=== PATIENT | female | born 1955 ===

== ENCOUNTER 2017-10-29 22:42 | Observation (INO) | payer BC ==
[2017-10-29 22:50] VITALS: RESP 18
[2017-10-29 23:45] LABS: BASO # 0.1 K/uL (0.0-0.2); BASO % 0.7 % (0.0-2.0); EOS # 0.1 K/uL (0.0-0.7); EOS % 0.7 % (0.0-4.0); LYMPH # 2.5 K/uL (1.0-4.3); LYMPH % 30.8 % (20.0-40.0); MEAN CELL VOLUME 81.7 fl (81.0-99.0); MEAN CORPUSCULAR HGB CONC 31.9 g/dL (33.0-37.0); MEAN PLATELET VOLUME 10.3 fl (7.2-11.7); MONO # 0.6 K/uL (0.0-0.8); MONO % 6.7 % (0.0-10.0); NEUT % 61.1 % (50.0-75.0); NRBC % 0.1 % (0.0-0.0); RBC 4.99 Mil/uL (3.80-5.20); RED CELL DISTRIBUTION WIDTH 14.3 % (11.5-14.5); WHITE BLOOD COUNT 8.2 K/uL (4.8-10.8)
--- NOTE | 2017-10-30 00:03 | ED PDOC ---
HPI: Chest Pain Time Seen by Provider: 10/29/17 23:10 Chief Complaint (Nursing): Chest Pain History Per: Patient History/Exam Limitations: no limitations Onset/Duration Of Symptoms: Days (x1) Current Symptoms Are (Timing): Constant Additional Complaint(s): Sindy Joseph, a 62 year old female presents to the Emergency Department complaining of constant substernal pressure-like chest pain onset today, . Reports hers daughter gave her Aspirin and she called the ambulance upon the family's request. The patient mentions the EMS provided her with sublingual nitrate for relief of symptoms. She also has family history of hypertension. Denies nausea or leg swelling. PMD: Dr. Del Rio Past Medical History Reviewed: Historical Data, Nursing Documentation, Vital Signs Vital Signs: Last Vital Signs Temp 98.2 F 10/29/17 22:46 Pulse 64 10/29/17 23:06 Resp 18 10/29/17 23:06 BP 125/79 10/29/17 23:06 Pulse Ox 98 10/30/17 00:07 - Medical History PMH: Arthritis, HTN, Osteoporosis Denies: Chronic Kidney Disease - Surgical History Surgical History: Appendectomy - Family History Family History: States: Unknown Family Hx - Social History Current smoker - smoking cessation education provided: Yes Alcohol: None Drugs: Denies - Immunization History Hx Tetanus Toxoid Vaccination: No Hx Influenza Vaccination: No Hx Pneumococcal Vaccination: No - Home Medications Home Medications: Ambulatory Orders Medication Instructions Recorded Atorvastatin [Lipitor] 40 mg PO DAILY #30 tab 11/16/16 Nebivolol [Bystolic] 5 mg PO DAILY 10/29/17 - Allergies Allergies/Adverse Reactions: Allergies Allergy/AdvReac Type Severity Reaction Status Date / Time No Known Allergies Allergy Verified 11/14/16 12:50 Review of Systems ROS Statement: Except As Marked, All Systems Reviewed And Found Negative (As per HPI, otherwise negative) Respiratory: Negative for: Shortness of Breath Gastrointestinal: Negative for: Nausea, Vomiting Musculoskeletal: Negative for: Other (no leg swelling) - Laboratory Results Result Diagrams: 10/29/17 23:41 - ECG O2 Sat by Pulse Oximetry: 98 (RA) Pulse Ox Interpretation: Normal Medical Decision Making Medical Decision Making: Time: 23:31 Initial Impression: Chest Pain Patient is currently symptomatic. Patient has anginal chest pain with cardiac risk factors and needs hospitalization. Initial Plan: --Type and Screen --EKG --B-Type Natriuretic Peptide --CMP --Magnesium --Phosphorous --Troponin I --Troponin I Q8H --CBC --Partial Thromboplastin Time [COAG] -- Thromboplastin Time [COAG] --Chest X-ray --Reevaluation Scribe Attestation: Documented by Rory, acting as a scribe for Silva Flowers MD Provider Scribe Attestation: All medical record entries made by the Scribe were at my direction and personally dictated by me. I have reviewed the chart and agree that the record accurately reflects my personal performance of the history, physical exam, medical decision making, and the department course for this patient. I have also personally directed, reviewed, and agree with the discharge instructions and disposition. Disposition - Disposition Condition: STABLE Forms: lark (Kiswahili)
[2017-10-30 00:10] LABS: B-TYPE NATRIURETIC PEPTIDE 228 pg/ml (0-900)
[2017-10-30 00:11] LABS: ALB/GLOB RATIO 0.8 (1.0-2.1); ALBUMIN 4.1 g/dL (3.5-5.0); ALT/SGPT 20 U/L (9-52); AST/SGOT 23 U/L (14-36); BLOOD UREA NITROGEN 16 mg/dl (7-17); CALCIUM 9.6 mg/dL (8.4-10.2); GFR AFRICAN-AMERICAN > 60; GFR NON-AFRICAN AMERICAN > 60; MAGNESIUM 1.9 MG/DL (1.6-2.3)
[2017-10-30 00:15] LABS: INR 1.1 (0.9-1.2); PARTIAL THROMBOPLASTIN TIME 28.8 Seconds (25.6-37.1); PROTHROMBIN TIME 11.8 Seconds (9.8-13.1)
--- NOTE | 2017-10-30 03:35 | CP.PCM.PCO ---
Addendum Addendum: 10/30/17 03:33 I am called by nurse and notified patient has epigastric abdominal pain. Patient admitted for chest pain in telemetry, EKG normal, trop x1 normal. Reporting that chest pain subsided, but now has a new abd pain over epigastric area and supraumbilical 04/11. Denies hx/o GERD, gastritis, pyrosis. patient received aspirin at home and nitroglycerin on the ambulance for chest pain. A: Abd pain P: repeat EKG, pantoprazol 40 mg IV -resume BP medication for today 9 am -f/u 2nd troponin. --EKG normal, no acute changes -F/U lipase 10/30/17 05:02
[2017-10-30 08:47] VITALS: BMI 26.9
[2017-10-30 08:55] LABS: HDL CHOLESTEROL 32 MG/DL (30-70)
[2017-10-30] MEDS ORDERED: Enoxaparin 40 mg Syringe SC SCH (09:00)
[2017-10-30 09:05] LABS: LDL CHOLESTEROL 80 mg/dL (0-129)
[2017-10-30 09:06] LABS: T4 9.49 ug/dl (5.5-11.0)
--- NOTE | 2017-10-30 09:50 | RAD ---
HISTORY: chest pain COMPARISON: No prior. FINDINGS: LUNGS: Mild bibasilar atelectasis PLEURA: No significant pleural effusion identified, no pneumothorax apparent. CARDIOVASCULAR: Normal. OSSEOUS STRUCTURES: No significant abnormalities. VISUALIZED UPPER ABDOMEN: Normal. OTHER FINDINGS: None. IMPRESSION: Mild bibasilar atelectasis
--- NOTE | 2017-10-30 11:33 | HP ---
HISTORY OF PRESENT ILLNESS: Ms. Joseph is a 62-year-old female who was admitted via the emergency room because of constant substernal chest pressure on the day of admission. She was brought in to the hospital by the daughter who was called the ambulance to bring her to the hospital and had given the mom an aspirin. Symptoms have persisted. In the ambulance, she received nitrate sublingual and was brought to the emergency room where was noted to have elevated blood pressure. PAST MEDICAL HISTORY: Remarkable for arthritis, hypertension, osteoporosis. FAMILY HISTORY: Nonrevealilng. SOCIAL HISTORY: She denies smoking recently, but used to in the past. Does use alcohol. Does not use drugs. MEDICATIONS: Include atorvastatin and Bystolic. PHYSICAL EXAMINATION: GENERAL: The patient is alert, oriented. Appears to be comfortable at present. VITAL SIGNS: Blood pressure 126/78 with a pulse of 66, respiratory rate 18 per minute, blood pressure on admission was 168/88, O2 sat 99% on room air. SKIN: Shows fair turgor. HEENT: Pupils equal, reactive to light and accommodation. Mouth shows fair hygiene. NECK: JVP flat. LUNGS: Clear. HEART: Regular. No murmurs or gallop. BRESTS: Normal. No chest wall tenderness. ABDOMEN: Soft, nontender. There is no organomegaly appreciated. EXTREMITIES: Show no edema or cyanosis. CENTRAL NERVOUS SYSTEM: Grossly intact. GENITALIA AND RECTAL: Deferred. LABORATORY DATA: WBC 8.2, hemoglobin 13.0, platelet count 189,000. Sodium 141, potassium 3.8, BUN 16, creatinine 0.6, troponin less than 0.012 x2. ProBNP 228. Thyroid profile normal. EKG, regular sinus rhythm, left atrial enlargement. Chest x-ray: Mild basilar atelectasis, otherwise unremarkable. IMPRESSION: Chest pain, uncontrolled hypertension, history of hyperlipidemia. PLAN: The plan is to obtain cardiac evaluation to rule out acute coronary syndrome. If cleared by Cardiology, we will discharge on antihypertensives and antilipids with aspirin. Dayne Matias MD
[2017-10-30 12:26] VITALS: BP 122/74; PULSE 57; TEMP 97.8; O2SAT 98
--- NOTE | 2017-10-30 12:41 | CP.PCM.DIS ---
Provider - Provider Date of Admission: 10/30/17 00:13 Attending physician: Dayne Matias MD Time Spent in preparation of Discharge (in minutes): 30 Diagnosis - Discharge Diagnosis (1) Chest pain Status: Acute (2) Hypertension Status: Acute (3) Hyperlipidemia Status: Acute Hospital Course - Lab Results Lab Results: Most Recent Lab Values WBC 8.2 K/uL (4.8-10.8) 10/29/17 23:41 RBC 4.99 Mil/uL (3.80-5.20) 10/29/17 23:41 Hgb 13.0 g/dL (12.0-16.0) 10/29/17 23:41 Hct 40.8 % (34.0-47.0) 10/29/17 23:41 MCV 81.7 fl (81.0-99.0) 10/29/17 23:41 MCH 26.0 pg (27.0-31.0) L 10/29/17 23:41 MCHC 31.9 g/dL (33.0-37.0) L 10/29/17 23:41 RDW 14.3 % (11.5-14.5) 10/29/17 23:41 Plt Count 189 K/uL (130-400) 10/29/17 23:41 MPV 10.3 fl (7.2-11.7) 10/29/17 23:41 Neut % (Auto) 61.1 % (50.0-75.0) 10/29/17 23:41 Lymph % (Auto) 30.8 % (20.0-40.0) 10/29/17 23:41 [place] % (Auto) 6.7 % (0.0-10.0) 10/29/17 23:41 Eos % (Auto) 0.7 % (0.0-4.0) 10/29/17 23:41 Baso % (Auto) 0.7 % (0.0-2.0) 10/29/17 23:41 Neut # 5.0 K/uL (1.8-7.0) 10/29/17 23:41 Lymph # 2.5 K/uL (1.0-4.3) 10/29/17 23:41 [place] # 0.6 K/uL (0.0-0.8) 10/29/17 23:41 Eos # 0.1 K/uL (0.0-0.7) 10/29/17 23:41 Baso # 0.1 K/uL (0.0-0.2) 10/29/17 23:41 PT 11.8 Seconds (9.8-13.1) 10/29/17 23:41 INR 1.1 (0.9-1.2) 10/29/17 23:41 APTT 28.8 Seconds (25.6-37.1) 10/29/17 23:41 Sodium 141 mmol/l (132-148) 10/29/17 23:41 Potassium 3.8 MMOL/L (3.6-5.0) 10/29/17 23:41 Chloride 105 mmol/L (98-107) 10/29/17 23:41 Carbon Dioxide 24 mmol/L (22-30) 10/29/17 23:41 Anion Gap 16 (10-20) 10/29/17 23:41 BUN 16 mg/dl (7-17) 10/29/17 23:41 Creatinine 0.6 mg/dl (0.7-1.2) L 10/29/17 23:41 Est GFR ( Amer) > 60 10/29/17 23:41 Est GFR (Non-Af Amer) > 60 10/29/17 23:41 Random Glucose 168 mg/dL (65-105) H 10/29/17 23:41 Calcium 9.6 mg/dL (8.4-10.2) 10/29/17 23:41 Phosphorus 3.2 mg/dl (2.5-4.5) 10/29/17 23:41 Magnesium 1.9 MG/DL (1.6-2.3) 10/29/17 23:41 Total Bilirubin 0.4 mg/dl (0.2-1.3) 10/29/17 23:41 AST 23 U/L (14-36) 10/29/17 23:41 ALT 20 U/L (9-52) 10/29/17 23:41 Alkaline Phosphatase 95 U/L (38-126) 10/29/17 23:41 Troponin I < 0.0120 ng/mL (0.00-0.120) 10/30/17 07:00 NT-Pro-B Natriuret Pep 228 pg/ml (0-900) 10/29/17 23:41 Total Protein 9.0 G/DL (6.3-8.2) H 10/29/17 23:41 Albumin 4.1 g/dL (3.5-5.0) 10/29/17 23:41 Globulin 4.9 gm/dL (2.2-3.9) H 10/29/17 23:41 Albumin/Globulin Ratio 0.8 (1.0-2.1) L 10/29/17 23:41 Triglycerides 99 mg/DL (0-149) 10/30/17 07:00 Cholesterol 141 mg/dL (0-199) 10/30/17 07:00 LDL Cholesterol Direct 80 mg/dL (0-129) 10/30/17 07:00 HDL Cholesterol 32 MG/DL (30-70) 10/30/17 07:00 Lipase 51 U/L (23-300) 10/30/17 07:00 Thyroxine (T4) 9.49 ug/dl (5.5-11.0) 10/30/17 07:00 TSH 3rd Generation 1.29 mIU/ML (0.46-4.68) 10/30/17 07:00 Blood Type O POSITIVE 10/29/17 23:50 Antibody Screen Negative 10/29/17 23:50 BBK History Checked Patient has bt 10/29/17 23:50 - Hospital Course Hospital Course: chest pain free cleared for discharge by 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--dr mane Discharge Exam - Head Exam Head Exam: ATRAUMATIC, NORMAL INSPECTION, NORMOCEPHALIC - Eye Exam Eye Exam: EOMI, Normal appearance, PERRL Pupil Exam: NORMAL ACCOMODATION, PERRL - GI/Abdominal Exam GI & Abdominal Exam: Normal Bowel Sounds - Rectal Exam Rectal Exam: NORMAL INSPECTION - Neurological Exam Neurological exam: Alert, CN II-XII Intact, Normal Gait, Oriented x3, Reflexes Normal - Psychiatric Exam Psychiatric exam: Normal Affect, Normal Mood - Skin Skin Exam: Dry, Intact, Normal Color, Warm Discharge Plan - Follow Up Plan Condition: STABLE Disposition: HOME/ ROUTINE Patient education suggested?: Yes Additional Instructions: discharge home today increase bystolic to 10 mg daily follow up with pmd
--- NOTE | 2017-10-30 13:18 | CP.PCM.CON ---
History of Present Illness - History of Present Illness History of Present Illness: This 62-year-old hypertensive female with a history of dyslipidemia ( and a smoker) came into the hospital complaining of left pectoral ache quite unconnected to any physical activity. The patient reports that she often climbs couple of flights of stairs without any difficulty. This chest discomfort did not radiate into her arms or jaws and did not cause any nausea vomiting or perspiration. It disappeared spontaneously. Physical examination shows a pleasant middle aged female who is able to lie virtually flat in bed and be comfortably at 14 breaths per minute. Her heart rate was 70 bpm and regular and her blood pressure was 140/70 mmHg. Her jugular venous pressure was not elevated and there was no edema of lower extremity. The pedal pulses are well felt. There were no carotid bruits. The apex was not palpable. The first and second heart sounds were normal. There was no murmur or gallop there were no rales. Her electro-cardiogram showed sinus rhythm with a normal EKG pattern. Electrocardiogram's of last year also showed a similar normal pattern. Her lab data shows normal troponin levels. The rest of her labs were noted. Impression: Atypical chest pain with no evidence of acute coronary syndrome. The patient was strongly advised against smoking. I have discussed her case with Dr. Matias. The patient may go home and continue her management as an outpatient. Past Patient History - Past Medical History & Family History Past Medical History?: Yes - Past Social History Smoking Status: Light Smoker < 10 Cigarettes Daily - CARDIAC Hx Cardiac Disorders: Yes Hx Hypercholesterolemia: Yes Hx Hypertension: Yes - PULMONARY Hx Respiratory Disorders: No - NEUROLOGICAL Hx Neurological Disorder: Yes Hx Transient Ischemic Attacks (TIA): Yes (1 year ago) - HEENT Hx HEENT Problems: No - RENAL Hx Chronic Kidney Disease: No - ENDOCRINE/METABOLIC Hx Endocrine Disorders: No - HEMATOLOGICAL/ONCOLOGICAL Hx Blood Disorders: No Hx Anemia: Yes - INTEGUMENTARY Hx Dermatological Problems: No - MUSCULOSKELETAL/RHEUMATOLOGICAL Hx Arthritis: Yes Hx Falls: No Hx Osteoporosis: Yes - GASTROINTESTINAL Hx Gastrointestinal Disorders: No - GENITOURINARY/GYNECOLOGICAL Hx Genitourinary Disorders: No - PSYCHIATRIC Hx Psychophysiologic Disorder: No Hx Substance Use: No - SURGICAL HISTORY Hx Appendectomy: Yes Hx Section: Yes - ANESTHESIA Hx Anesthesia: Yes Hx Anesthesia Reactions: No Meds Home Medications: Home Medication List Medication Instructions Recorded Confirmed Type Aspirin [Aspirin Chewable] 81 mg PO DAILY chew 10/30/17 Rx Nebivolol [Bystolic] 10 mg PO DAILY #30 10/30/17 10/29/17 Rx Allergies/Adverse Reactions: Allergies Allergy/AdvReac Type Severity Reaction Status Date / Time No Known Allergies Allergy Verified 11/14/16 12:50 - Medications Medications: Current Medications Aspirin (Aspirin Chewable) 81 mg PO DAILY [facility] Last Admin: 10/30/17 09:08 Dose: 81 mg Enoxaparin Sodium (Lovenox) 40 mg SC DAILY [facility] PRN Reason: Protocol Last Admin: 10/30/17 12:52 Dose: 40 mg Metoprolol Tartrate (Lopressor) 50 mg PO BID [facility] Last Admin: 10/30/17 09:07 Dose: 50 mg Results - Vital Signs Recent Vital Signs: Last Vital Signs Temp 97.8 F 10/30/17 12:51 Pulse 57 L 10/30/17 12:51 Resp 18 10/30/17 12:51 BP 122/74 10/30/17 12:51 Pulse Ox 98 10/30/17 12:51 - Labs Result Diagrams: 10/29/17 23:41 10/29/17 23:41 Labs: Laboratory Results - last 24 hr 10/29/17 10/29/17 10/29/17 23:41 23:41 23:41 WBC 8.2 RBC 4.99 Hgb 13.0 Hct 40.8 MCV 81.7 MCH 26.0 L MCHC 31.9 L RDW 14.3 Plt Count 189 MPV 10.3 Neut % (Auto) 61.1 Lymph % (Auto) 30.8 [place] % (Auto) 6.7 Eos % (Auto) 0.7 Baso % (Auto) 0.7 Neut # 5.0 Lymph # 2.5 [place] # 0.6 Eos # 0.1 Baso # 0.1 PT 11.8 INR 1.1 APTT 28.8 Sodium 141 Potassium 3.8 Chloride 105 Carbon Dioxide 24 Anion Gap 16 BUN 16 Creatinine 0.6 L Est GFR ( Amer) > 60 Est GFR (Non-Af Amer) > 60 Random Glucose 168 H Calcium 9.6 Phosphorus 3.2 Magnesium 1.9 Total Bilirubin 0.4 AST 23 ALT 20 Alkaline Phosphatase 95 Troponin I < 0.0120 NT-Pro-B Natriuret Pep 228 Total Protein 9.0 H Albumin 4.1 Globulin 4.9 H Albumin/Globulin Ratio 0.8 L Triglycerides Cholesterol LDL Cholesterol Direct HDL Cholesterol Lipase Thyroxine (T4) TSH 3rd Generation Blood Type Antibody Screen BBK History Checked 10/29/17 10/30/17 10/30/17 23:50 07:00 07:00 WBC RBC Hgb Hct MCV MCH MCHC RDW Plt Count MPV Neut % (Auto) Lymph % (Auto) [place] % (Auto) Eos % (Auto) Baso % (Auto) Neut # Lymph # [place] # Eos # Baso # PT INR APTT Sodium Potassium Chloride Carbon Dioxide Anion Gap BUN Creatinine Est GFR ( Amer) Est GFR (Non-Af Amer) Random Glucose Calcium Phosphorus Magnesium Total Bilirubin AST ALT Alkaline Phosphatase Troponin I < 0.0120 NT-Pro-B Natriuret Pep Total Protein Albumin Globulin Albumin/Globulin Ratio Triglycerides 99 Cholesterol 141 LDL Cholesterol Direct 80 HDL Cholesterol 32 Lipase 51 Thyroxine (T4) 9.49 TSH 3rd Generation 1.29 Blood Type O POSITIVE Antibody Screen Negative BBK History Checked Patient has bt
--- NOTE | 2017-10-31 12:53 | CARD ---
APPROVED REPORT EKG Measurement Heart [id number] ID [id number] <Conclusion> Normal sinus rhythm Possible Left atrial enlargement Borderline ECG
--- NOTE | 2017-10-31 12:55 | CARD ---
APPROVED REPORT EKG Measurement Heart [id number] <Conclusion> Normal sinus rhythm Normal ECG
== END 2017-10-30 14:00 | disposition home or self-care (01) ==
LOC: H.ER 22:42 → H.ERHOLD 10-30 00:13 → H.TEL 10-30 02:10
PROVIDERS: ADMIT Internal Medicine Pulmonary Disease; ATTEND Internal Medicine Pulmonary Disease
DX: R07.89 Other chest pain (principal); I10 Essential (primary) hypertension; M81.0 Age-related osteoporosis without current pathological fracture; Z79.899 Other long term (current) drug therapy; Z82.49 Family history of ischemic heart disease and other diseases of the circulatory system; Z86.73 Personal history of transient ischemic attack (TIA), and cerebral infarction without residual deficits; Z90.49 Acquired absence of other specified parts of digestive tract; D64.9 Anemia, unspecified; M19.90 Unspecified osteoarthritis, unspecified site; R10.13 Epigastric pain; R10.9 Unspecified abdominal pain; E78.00 Pure hypercholesterolemia, unspecified; E78.5 Hyperlipidemia, unspecified; F17.200 Nicotine dependence, unspecified, uncomplicated
CPT/HCPCS: 36415; 71045; 80053; 80061; 83690; 83735; 83880; 84100; 84436; 84443; 84484; 85025; 85610; 85730; 86850; 86900; 93005; 99285; C9113; G0378; J1650

== ENCOUNTER 2018-08-29 15:42 | Observation (INO) | payer BC ==
[2018-08-29 15:42] VITALS: BMI 26.9
[2018-08-29 16:28] LABS: BASO # 0.1 K/uL (0.0-0.2); BASO % 0.5 % (0.0-2.0); EOS # 0.1 K/uL (0.0-0.7); HEMOGLOBIN 14.2 g/dL (12.0-16.0); LYMPH # 3.8 K/uL (1.0-4.3); LYMPH % 28.9 % (20.0-40.0); MEAN CELL VOLUME 81.5 fl (81.0-99.0); MEAN CORPUSCULAR HEMOGLOBIN 26.2 pg (27.0-31.0); MEAN CORPUSCULAR HGB CONC 32.1 g/dL (33.0-37.0); MEAN PLATELET VOLUME 10.2 fl (7.2-11.7); MONO # 1.1 K/uL (0.0-0.8); MONO % 8.2 % (0.0-10.0); NEUT # 8.1 K/uL (1.8-7.0); NEUT % 61.4 % (50.0-75.0); NRBC % 0.3 % (0.0-0.0); RBC 5.43 Mil/uL (3.80-5.20); RED CELL DISTRIBUTION WIDTH 14.6 % (11.5-14.5); WHITE BLOOD COUNT 13.3 K/uL (4.8-10.8)
[2018-08-29 16:36] LABS: PROTHROMBIN TIME 11.6 Seconds (9.8-13.1)
[2018-08-29 16:39] LABS: PARTIAL THROMBOPLASTIN TIME 29.8 Seconds (25.6-37.1)
[2018-08-29 16:41] LABS: BLOOD UREA NITROGEN 17 mg/dl (7-17); CALCIUM 9.7 mg/dL (8.4-10.2); GFR NON-AFRICAN AMERICAN > 60; HDL CHOLESTEROL 52 MG/DL (30-70)
[2018-08-29 16:51] LABS: LDL CHOLESTEROL 147 mg/dL (0-129)
--- NOTE | 2018-08-29 16:55 | ED PDOC ---
HPI:STROKE - Time Time: 15:50 - Historian Historian: Patient - Chief Complaint Chief Complaint: Weakness, Numbness - Onset Date: 08/26/18 Onset: Days (4) - Timing Timing: Intermittent - Location Locate left: other (Left side) - Severity of pain Maximum severity:: Moderate Pain Scale:: 4 Severity Current: Moderate Pain Scale:: 4 - Quality of Pain Quality of Pain:: Pressure (head) - Associated Symptoms Associated symptoms:: Headache - Exacerbated by Exacerbated by:: Nothing - Relieved by Relieved by:: Nothing - TPA Positive for Contraindication: Yes Reason tPA is not being Administered: Onset is out of window for TPA NIHSS Stroke Scale - Date/Time Evaluation Performed Date Performed: 08/29/18 Time Performed: 15:55 When Was NIHSS Performed: Baseline - How Severe is the Stroke Level of Consciousness: 0=Alert LOC to Questions: 0=Both comments correct LOC to commands: 0=Obeys both correctly Best Gaze: 0=Normal Visual: 0=No visual loss Facial: 1=Minor asymmetry Motor Arm - Left: 0=No drift Motor Arm - Right: 0=No drift Motor Leg - Left: 0=No drift Motor Leg - Right: 0=No drift Limb Ataxia: 0=Absent Sensory: 0=Normal Best Language: 0=No aphasia Dysarthia: 0=Normal articulation Extinction & Inattention (Neglect): 0=Normal, no object Score: 1 rTPA Inclusion/Exclusion - Refusal of Treatment Patient Refused Treatment: No - Inclusion Criteria for Altepase Patient is 18 years or Older: Yes The Clinical Diagnosis of Ischemic Stroke That is Causing a Potentially Disabling Neurological Deficit: No Time of Onset is Well Established to be Less Than 270 Minute Before Treatment Would Begin: No Risk/Benefit Discussed With Patient/Family Member Present: No Past Medical History Reviewed: Historical Data, Nursing Documentation, Vital Signs Vital Signs: Last Vital Signs Temp 98.1 F 08/29/18 15:52 Pulse 80 08/29/18 15:52 Resp 18 08/29/18 15:52 BP 201/117 H 08/29/18 15:52 Pulse Ox 100 08/29/18 15:52 - Medical History PMH: Anemia, Arthritis, HTN, Hypercholesterolemia, Hyperlipidemia, Osteoporosis, TIA (1 year ago) Denies: Chronic Kidney Disease - Surgical History Surgical History: Appendectomy, - Family History Family History: States: Unknown Family Hx - Immunization History Hx Tetanus Toxoid Vaccination: No Hx Influenza Vaccination: No Hx Pneumococcal Vaccination: No - Home Medications Home Medications: Ambulatory Orders Medication Instructions Recorded RX: Atorvastatin [Lipitor] 40 mg PO DAILY #30 tab 11/16/16 RX: Aspirin [Aspirin Chewable] 81 mg PO DAILY chew 10/30/17 RX: Nebivolol [Bystolic] 10 mg PO DAILY #30 10/30/17 - Allergies Allergies/Adverse Reactions: Allergies Allergy/AdvReac Type Severity Reaction Status Date / Time No Known Allergies Allergy Verified 08/29/18 15:51 Review of Systems ROS Statement: Except As Marked, All Systems Reviewed And Found Negative Physical Exam - Reviewed Nursing Documentation Reviewed: Yes Vital Signs Reviewed: Yes - Physical Exam Appears: Positive for: Non-toxic, No Acute Distress Head Exam: Positive for: ATRAUMATIC, NORMAL INSPECTION Skin: Positive for: Normal Color, Warm, Dry Eye Exam: Positive for: EOMI, PERRL ENT: Positive for: Normal ENT Inspection Neck: Positive for: Painless ROM, Supple Cardiovascular/Chest: Positive for: Regular Rate, Rhythm Respiratory: Positive for: Normal Breath Sounds. Negative for: Respiratory Distress Gastrointestinal/Abdominal: Positive for: Soft. Negative for: Tenderness Extremity: Positive for: Normal ROM Neurologic/Psych: Positive for: Alert, flaker operator II-XII (Facial nerveL left facial assymetry), Oriented, Cerebellar Tests (intact), Gait (steady). Negative for: Motor/Sensory Deficits, Aphasia, Facial Droop - Laboratory Results Result Diagrams: 08/29/18 16:19 08/29/18 16:19 - ECG O2 Sat by Pulse Oximetry: 100 Medical Decision Making Medical Decision Making: Impression: Left sided paresthesia and weakness Diff includes CVA 17:06 --CT head FINDINGS: HEMORRHAGE: No intracranial hemorrhage. BRAIN: No mass effect or edema. No atrophy or chronic microvascular ischemic changes. VENTRICLES: Unremarkable. No hydrocephalus. CALVARIUM: Unremarkable. PARANASAL SINUSES: Unremarkable as visualized. No significant inflammatory changes. MASTOID AIR CELLS: Unremarkable as visualized. No inflammatory changes. OTHER FINDINGS: None. IMPRESSION: No evidence of acute intracranial hemorrhage mass effect or midline shift. No CT evidence of acute territorial infarction. If clinically warranted further assessment by MRI of the brain may be obtained. [address] Brooks who recommends ASA, CT angio, and MRI brain. 20:17 --MRI brain FINDINGS: BRAIN: No restricted diffusion to indicate acute infarction. No intracranial mass or hemorrhage. No midline shift or extra-axial fluid collection. No sulcal effacement. No cerebellar tonsillar ectopia. The central arterial and venous flow voids are patent. VENTRICLES: No hydrocephalus. ORBITS: The orbits are normal. SINUSES AND MASTOIDS: The sinuses and mastoid air cells are clear. BONES: No focal osseous lesion. IMPRESSION: Unremarkable brain MRI. Disposition - Clinical Impression Clinical Impression: TIA (transient ischemic attack) - Patient ED Disposition Is Patient to be Admitted: Yes Discussed With DrCarl: Blake Noble Counseled Patient/Family Regarding: Studies Performed, Diagnosis - Disposition Disposition Time: 17:30 Condition: FAIR - Pt Status Changed To: Hospital Disposition Of: Observation - POA Present On Arrival: None
--- NOTE | 2018-08-29 17:10 | CT ---
Date of service: 08/29/2018 PROCEDURE: CT HEAD WITHOUT CONTRAST. HISTORY: weakness left sided COMPARISON: Comparison is made with 11/14/2016 TECHNIQUE: Axial computed tomography images were obtained through the head/brain without intravenous contrast. Radiation dose: Total exam DLP = 767.68 mGy-cm. This CT exam was performed using one or more of the following dose reduction techniques: Automated exposure control, adjustment of the mA and/or kV according to patient size, and/or use of iterative reconstruction technique. FINDINGS: HEMORRHAGE: No intracranial hemorrhage. BRAIN: No mass effect or edema. No atrophy or chronic microvascular ischemic changes. VENTRICLES: Unremarkable. No hydrocephalus. CALVARIUM: Unremarkable. PARANASAL SINUSES: Unremarkable as visualized. No significant inflammatory changes. MASTOID AIR CELLS: Unremarkable as visualized. No inflammatory changes. OTHER FINDINGS: None. IMPRESSION: No evidence of acute intracranial hemorrhage mass effect or midline shift. No CT evidence of acute territorial infarction. If clinically warranted further assessment by MRI of the brain may be obtained.
[2018-08-29 18:27] LABS: SQUAMOUS EPITHIAL 5 /hpf (0-5); URINE BILIRUBIN NEGATIVE (NEGATIVE); URINE BLOOD NEGATIVE (NEGATIVE); URINE CLARITY CLEAR (Clear); URINE COLOR STRAW (YELLOW); URINE GLUCOSE (UA) NEG (Normal); URINE LEUKOCYTE ESTERASE NEG Leu/uL (Negative); URINE PROTEIN NEGATIVE (NEGATIVE); URINE UROBILINOGEN 0.2-1.0 mg/dL (0.2-1.0)
[2018-08-29 18:54] LABS: BARBITURATES, UR NEGATIVE (NEGATIVE); BENZODIAZEPINES, UR NEGATIVE (NEGATIVE); OPIATES, UR NEGATIVE (NEGATIVE); PHENCYCLIDINE, UR NEGATIVE (NEGATIVE)
[2018-08-29] MEDS ORDERED: Aspirin 325 mg EC Tablets PO ONE (19:02)
[2018-08-29] MEDS ORDERED: Sodium Chloride 0.9% 50 ML IV ONE (19:40)
[2018-08-29] MEDS ORDERED: Iodixanol 320 MG/ML 100 ML BOTTLE IV ONE (19:40)
[2018-08-30 05:48] LABS: HEMOGLOBIN 13.7 g/dL (12.0-16.0); MEAN CELL VOLUME 82.2 fl (81.0-99.0); MEAN CORPUSCULAR HEMOGLOBIN 25.5 pg (27.0-31.0); RBC 5.37 Mil/uL (3.80-5.20); RED CELL DISTRIBUTION WIDTH 14.7 % (11.5-14.5); WHITE BLOOD COUNT 14.3 K/uL (4.8-10.8)
[2018-08-30 06:12] LABS: BLOOD UREA NITROGEN 21 mg/dl (7-17); CALCIUM 9.3 mg/dL (8.4-10.2); GFR NON-AFRICAN AMERICAN > 60; HDL CHOLESTEROL 44 MG/DL (30-70)
[2018-08-30 06:18] LABS: LDL CHOLESTEROL 140 mg/dL (0-129)
--- NOTE | 2018-08-30 07:45 | CP.PCM.HP ---
History of Present Illness - History of Present Illness History of Present Illness: Patient seen and examined with Dr Noble 63 yo female with PMH TIA 2 year ago, present to ED c/o numbness on her face and weakness in LLE. Patient reports initially her face turned red 4 days ago she went to PMD and was Rx some medicines for allergy, then she started with numbness and dryness in her nose. She endorses having a TIA 1 year ago. She denies dizziness, blurred vision, headache, ataxia, slurred speech, recent fever, nausea or vomiting, no CP or sob. Patient has no current focal deficits or weakness. PMD: PMH:Anemia, Arthritis, HTN, Hypercholesterolemia, Hyperlipidemia, Osteoporosis, TIA (2 years ago) PSH: Appendectomy, Meds: as bellow NKDA FMH: denies SH: no etoh, tobacco or alcohol Present on Admission - Present on Admission Any Indicators Present on Admission: No Review of Systems - Review of Systems All systems: reviewed and no additional remarkable complaints except (HPI) Past Patient History - Past Medical History & Family History Past Medical History?: Yes - Past Social History Smoking Status: Light Smoker < 10 Cigarettes Daily - CARDIAC Hx Cardiac Disorders: Yes Hx Hypercholesterolemia: Yes Hx Hypertension: Yes - PULMONARY Hx Respiratory Disorders: No - NEUROLOGICAL Hx Neurological Disorder: Yes Hx Transient Ischemic Attacks (TIA): Yes (1 year ago) - HEENT Hx HEENT Problems: No - RENAL Hx Chronic Kidney Disease: No - ENDOCRINE/METABOLIC Hx Endocrine Disorders: No - HEMATOLOGICAL/ONCOLOGICAL Hx Blood Disorders: Yes Hx Anemia: Yes - INTEGUMENTARY Hx Dermatological Problems: No - MUSCULOSKELETAL/RHEUMATOLOGICAL Hx Musculoskeletal Disorders: Yes Hx Arthritis: Yes Hx Falls: No Hx Osteoporosis: Yes - GASTROINTESTINAL Hx Gastrointestinal Disorders: No - GENITOURINARY/GYNECOLOGICAL Hx Genitourinary Disorders: No - PSYCHIATRIC Hx Psychophysiologic Disorder: No Hx Substance Use: No - SURGICAL HISTORY Hx Surgeries: Yes Hx Appendectomy: Yes Hx Section: Yes - ANESTHESIA Hx Anesthesia: Yes Hx Anesthesia Reactions: No Meds Allergies/Adverse Reactions: Allergies Allergy/AdvReac Type Severity Reaction Status Date / Time No Known Allergies Allergy Verified 08/29/18 15:51 Physical Exam - Constitutional Appears: No Acute Distress - Head Exam Head Exam: NORMAL INSPECTION - Eye Exam Eye Exam: EOMI - Respiratory Exam Respiratory Exam: Clear to Auscultation Bilateral, NORMAL BREATHING PATTERN - Cardiovascular Exam Cardiovascular Exam: REGULAR RHYTHM, +S1, +S2 - GI/Abdominal Exam GI & Abdominal Exam: Normal Bowel Sounds, Soft. absent: Tenderness - Extremities Exam Extremities exam: Negative for: calf tenderness - Neurological Exam Neurological exam: Alert, CN II-XII Intact, Oriented x3 - Expanded Neurological Exam Expanded Speech: Fluid Speech Neuro motor strength exam: Left Upper Extremity: 5, Right Upper Extremity: 5, Left Lower Extremity: 5, Right Lower Extremity: 5 - Skin Skin Exam: Dry, Warm Results - Vital Signs Recent Vital Signs: Last Vital Signs Temp 97.4 F L 08/30/18 05:22 Pulse 65 08/30/18 05:22 Resp 18 08/30/18 05:22 BP 127/76 08/30/18 05:22 Pulse Ox 98 08/30/18 05:22 - Labs Result Diagrams: 08/30/18 04:50 08/30/18 04:50 Labs: Laboratory Results - last 24 hr 08/29/18 08/29/18 08/29/18 16:19 16:19 16:19 WBC 13.3 H D RBC 5.43 H Hgb 14.2 Hct 44.3 MCV 81.5 MCH 26.2 L MCHC 32.1 L RDW 14.6 H Plt Count 196 MPV 10.2 Neut % (Auto) 61.4 Lymph % (Auto) 28.9 [place] % (Auto) 8.2 Eos % (Auto) 1.0 Baso % (Auto) 0.5 Neut # (Auto) 8.1 H Lymph # (Auto) 3.8 [place] # (Auto) 1.1 H Eos # (Auto) 0.1 Baso # (Auto) 0.1 PT 11.6 INR 1.0 APTT 29.8 Sodium 138 Potassium 4.6 Chloride 99 Carbon Dioxide 29 Anion Gap 15 BUN 17 Creatinine 0.6 L Est GFR ( Amer) > 60 Est GFR (Non-Af Amer) > 60 Random Glucose 102 Calcium 9.7 Troponin I < 0.0120 Triglycerides 119 D Cholesterol 207 H LDL Cholesterol Direct 147 H HDL Cholesterol 52 Vitamin B12 TSH 3rd Generation Urine Color Urine Clarity Urine pH Ur Specific [place] Urine Protein Urine Glucose (UA) Urine Ketones Urine Blood Urine Nitrate Urine Bilirubin Urine Urobilinogen Ur Leukocyte Esterase Urine RBC (Auto) Urine Microscopic WBC Ur Squamous Epith Cells Urine Opiates Screen Urine Methadone Screen Ur Barbiturates Screen Ur Phencyclidine Scrn Ur Amphetamines Screen U Benzodiazepines Scrn U Oth Cocaine Metabols U Cannabinoids Screen Alcohol, Quantitative < 10 08/29/18 08/29/18 08/30/18 17:54 18:10 04:50 WBC 14.3 H RBC 5.37 H Hgb 13.7 Hct 44.1 MCV 82.2 MCH 25.5 L MCHC 31.0 L RDW 14.7 H Plt Count 160 MPV Neut % (Auto) Lymph % (Auto) [place] % (Auto) Eos % (Auto) Baso % (Auto) Neut # (Auto) Lymph # (Auto) [place] # (Auto) Eos # (Auto) Baso # (Auto) PT INR APTT Sodium Potassium Chloride Carbon Dioxide Anion Gap BUN Creatinine Est GFR ( Amer) Est GFR (Non-Af Amer) Random Glucose Calcium Troponin I Triglycerides Cholesterol LDL Cholesterol Direct HDL Cholesterol Vitamin B12 TSH 3rd Generation Urine Color Straw Urine Clarity Clear Urine pH 7.0 Ur Specific [place] < 1.005 Urine Protein Negative Urine Glucose (UA) Neg Urine Ketones Negative Urine Blood Negative Urine Nitrate Negative Urine Bilirubin Negative Urine Urobilinogen 0.2-1.0 Ur Leukocyte Esterase Neg Urine RBC (Auto) 1 Urine Microscopic WBC 1 Ur Squamous Epith Cells 5 Urine Opiates Screen Negative Urine Methadone Screen Negative Ur Barbiturates Screen Negative Ur Phencyclidine Scrn Negative Ur Amphetamines Screen Negative U Benzodiazepines Scrn Negative U Oth Cocaine Metabols Negative U Cannabinoids Screen Negative Alcohol, Quantitative 08/30/18 04:50 WBC RBC Hgb Hct MCV MCH MCHC RDW Plt Count MPV Neut % (Auto) Lymph % (Auto) [place] % (Auto) Eos % (Auto) Baso % (Auto) Neut # (Auto) Lymph # (Auto) [place] # (Auto) Eos # (Auto) Baso # (Auto) PT INR APTT Sodium 140 Potassium 3.6 Chloride 105 Carbon Dioxide 27 Anion Gap 12 BUN 21 H Creatinine 0.7 Est GFR ( Amer) > 60 Est GFR (Non-Af Amer) > 60 Random Glucose 117 H Calcium 9.3 Troponin I Triglycerides 137 Cholesterol 199 LDL Cholesterol Direct 140 H HDL Cholesterol 44 Vitamin B12 340 TSH 3rd Generation 0.24 L Urine Color Urine Clarity Urine pH Ur Specific [place] Urine Protein Urine Glucose (UA) Urine Ketones Urine Blood Urine Nitrate Urine Bilirubin Urine Urobilinogen Ur Leukocyte Esterase Urine RBC (Auto) Urine Microscopic WBC Ur Squamous Epith Cells Urine Opiates Screen Urine Methadone Screen Ur Barbiturates Screen Ur Phencyclidine Scrn Ur Amphetamines Screen U Benzodiazepines Scrn U Oth Cocaine Metabols U Cannabinoids Screen Alcohol, Quantitative Assessment & Plan - Assessment and Plan (Free Text) Assessment: 63 year old female admitted for evaluation and management of facial numbness and LLE which resolved, r/o TIA. Plan: - similar episode 2 years ago - symptoms resolved - CT head neg, MRI brain no acute infarct - CTA pending - Neuro consulted - Cardio consulted - PT eval - On ASA, beta amisha and statin - Rest of plan as ordered
[2018-08-30] MEDS: Enoxaparin 40 mg Syringe SC SCH (09:22)
--- NOTE | 2018-08-30 11:01 | CARD ---
APPROVED REPORT Date of service: 08/29/2018 EKG Measurement Heart [id number] <Conclusion> Normal sinus rhythm Possible Left atrial enlargement Borderline ECG
[2018-08-30] MEDS ORDERED: methylPREDNISolone 125 MG in Sodium Chloride 0.9% 50 ML IVPB ONE (12:31)
--- NOTE | 2018-08-30 12:42 | CP.PCM.CON ---
History of Present Illness - History of Present Illness History of Present Illness: Consultation for evaluation of episode of ? TIA / paresthesia of face and tongue HPI: Ms. Joseph is a 63 year old female with PMH of TIA (2 years ago), OA, HTN, and HLD who presented to ED with facial numbness and LLE weakness concerning for CVA. She complained of facial erythema to her PMD, rx was given for allergy medicines. After taking these medications, she began to develop fac ial numbness with LLE weakness. By the time she presented to ED, she was no longer having deficits. CT head, MRI brain, and CTA head and neck were completed and showed no areas of acute ischemia. Currently, she states she feels fine and denies fever/chills, CP, SOB, cough, ataxia, slurred speech, nausea/vomiting, or other gross neurological deficits. EKG on admission to ED was NSR without acute ST or T wave changes. Last Echo was performed in 11/2016 and showed EF of 65-70% with mild tricuspid regurgitation and mild pulmonary HTN. Patient also complains of having a atypical chest pain described as a stabbing sensation which was accompanied by headache at the time of the presentation also describes intermittent bouts of substernal pressure not related to activity. Review of Systems - Review of Systems Systems not reviewed;Unavailable: Acuity of Condition - Constitutional Constitutional: As Per HPI - EENT Eyes: As Per HPI Ears: As Per HPI Nose/Mouth/Throat: As Per HPI - Breasts Breasts: As Per HPI - Cardiovascular Cardiovascular: As Per HPI - Respiratory Respiratory: As Per HPI - Gastrointestinal Gastrointestinal: As Per HPI - Genitourinary Genitourinary: As Per HPI - Reproductive: Female Reproductive:Female: As Per HPI - Menstruation Menstruation: As Per HPI - Musculoskeletal Musculoskeletal: As Per HPI - Integumentary Integumentary: As Per HPI - Neurological Neurological: As Per HPI - Psychiatric Psychiatric: As Per HPI - Endocrine Endocrine: As Per HPI - Hematologic/Lymphatic Hematologic: As Per HPI Past Patient History - Past Medical History & Family History Past Medical History?: Yes - Past Social History Smoking Status: Light Smoker < 10 Cigarettes Daily - CARDIAC Hx Cardiac Disorders: Yes Hx Hypercholesterolemia: Yes Hx Hypertension: Yes - PULMONARY Hx Respiratory Disorders: No - NEUROLOGICAL Hx Neurological Disorder: Yes Hx Transient Ischemic Attacks (TIA): Yes (1 year ago) - HEENT Hx HEENT Problems: No - RENAL Hx Chronic Kidney Disease: No - ENDOCRINE/METABOLIC Hx Endocrine Disorders: No - HEMATOLOGICAL/ONCOLOGICAL Hx Blood Disorders: Yes Hx Anemia: Yes - INTEGUMENTARY Hx Dermatological Problems: No - MUSCULOSKELETAL/RHEUMATOLOGICAL Hx Musculoskeletal Disorders: Yes Hx Arthritis: Yes Hx Falls: No Hx Osteoporosis: Yes - GASTROINTESTINAL Hx Gastrointestinal Disorders: No - GENITOURINARY/GYNECOLOGICAL Hx Genitourinary Disorders: No - PSYCHIATRIC Hx Psychophysiologic Disorder: No Hx Substance Use: No - SURGICAL HISTORY Hx Surgeries: Yes Hx Appendectomy: Yes Hx Section: Yes - ANESTHESIA Hx Anesthesia: Yes Hx Anesthesia Reactions: No Meds Allergies/Adverse Reactions: Allergies Allergy/AdvReac Type Severity Reaction Status Date / Time No Known Allergies Allergy Verified 08/29/18 15:51 - Medications Medications: Current Medications Aspirin (Aspirin Chewable) 81 mg PO DAILY [facility] Last Admin: 08/30/18 09:22 Dose: 81 mg Atorvastatin Calcium (Lipitor) 40 mg PO DAILY [facility] Last Admin: 08/30/18 09:21 Dose: 40 mg Diphenhydramine HCl (Benadryl) 25 mg PO Q6 PRN PRN Reason: Itching / Pruritus Enoxaparin Sodium (Lovenox) 40 mg SC DAILY [facility]; Protocol Last Admin: 08/30/18 09:22 Dose: 40 mg Methylprednisolone 125 mg/ (Sodium Chloride) 50 mls @ 100 mls/hr IVPB ONCE ONE Stop: 08/30/18 13:00 Metoprolol Tartrate (Lopressor) 50 mg PO BID [facility] Last Admin: 08/30/18 09:22 Dose: 50 mg Physical Exam - Constitutional Appears: Well - Head Exam Head Exam: ATRAUMATIC, NORMAL INSPECTION, NORMOCEPHALIC - Eye Exam Eye Exam: EOMI, Normal appearance, PERRL Pupil Exam: NORMAL ACCOMODATION, PERRL - ENT Exam ENT Exam: Mucous Membranes Moist, Normal Exam - Neck Exam Neck exam: Positive for: Normal Inspection - Respiratory Exam Respiratory Exam: Clear to Auscultation Bilateral, NORMAL BREATHING PATTERN - Cardiovascular Exam Cardiovascular Exam: REGULAR RHYTHM - GI/Abdominal Exam GI & Abdominal Exam: Normal Bowel Sounds, Soft. absent: Tenderness - Extremities Exam Extremities exam: Positive for: normal inspection - Back Exam Back exam: NORMAL INSPECTION - Neurological Exam Neurological exam: Alert, CN II-XII Intact, Normal Gait, Oriented x3, Reflexes Normal - Psychiatric Exam Psychiatric exam: Normal Affect, Normal Mood - Skin Skin Exam: Dry, Intact, Normal Color, Warm Results - Vital Signs Recent Vital Signs: Last Vital Signs Temp 97.8 F 08/30/18 11:56 Pulse 66 08/30/18 11:56 Resp 18 08/30/18 11:56 BP 126/76 08/30/18 11:56 Pulse Ox 96 08/30/18 11:56 - Labs Result Diagrams: 08/30/18 04:50 08/30/18 04:50 Labs: Laboratory Results - last 24 hr 08/29/18 08/29/18 08/29/18 16:19 16:19 16:19 WBC 13.3 H D RBC 5.43 H Hgb 14.2 Hct 44.3 MCV 81.5 MCH 26.2 L MCHC 32.1 L RDW 14.6 H Plt Count 196 MPV 10.2 Neut % (Auto) 61.4 Lymph % (Auto) 28.9 [place] % (Auto) 8.2 Eos % (Auto) 1.0 Baso % (Auto) 0.5 Neut # (Auto) 8.1 H Lymph # (Auto) 3.8 [place] # (Auto) 1.1 H Eos # (Auto) 0.1 Baso # (Auto) 0.1 PT 11.6 INR 1.0 APTT 29.8 Sodium 138 Potassium 4.6 Chloride 99 Carbon Dioxide 29 Anion Gap 15 BUN 17 Creatinine 0.6 L Est GFR ( Amer) > 60 Est GFR (Non-Af Amer) > 60 Random Glucose 102 Hemoglobin A1c Calcium 9.7 Troponin I < 0.0120 Triglycerides 119 D Cholesterol 207 H LDL Cholesterol Direct 147 H HDL Cholesterol 52 Vitamin B12 TSH 3rd Generation Urine Color Urine Clarity Urine pH Ur Specific [place] Urine Protein Urine Glucose (UA) Urine Ketones Urine Blood Urine Nitrate Urine Bilirubin Urine Urobilinogen Ur Leukocyte Esterase Urine RBC (Auto) Urine Microscopic WBC Ur Squamous Epith Cells Urine Opiates Screen Urine Methadone Screen Ur Barbiturates Screen Ur Phencyclidine Scrn Ur Amphetamines Screen U Benzodiazepines Scrn U Oth Cocaine Metabols U Cannabinoids Screen Alcohol, Quantitative < 10 08/29/18 08/29/18 08/30/18 17:54 18:10 04:50 WBC 14.3 H RBC 5.37 H Hgb 13.7 Hct 44.1 MCV 82.2 MCH 25.5 L MCHC 31.0 L RDW 14.7 H Plt Count 160 MPV Neut % (Auto) Lymph % (Auto) [place] % (Auto) Eos % (Auto) Baso % (Auto) Neut # (Auto) Lymph # (Auto) [place] # (Auto) Eos # (Auto) Baso # (Auto) PT INR APTT Sodium Potassium Chloride Carbon Dioxide Anion Gap BUN Creatinine Est GFR ( Amer) Est GFR (Non-Af Amer) Random Glucose Hemoglobin A1c Calcium Troponin I Triglycerides Cholesterol LDL Cholesterol Direct HDL Cholesterol Vitamin B12 TSH 3rd Generation Urine Color Straw Urine Clarity Clear Urine pH 7.0 Ur Specific [place] < 1.005 Urine Protein Negative Urine Glucose (UA) Neg Urine Ketones Negative Urine Blood Negative Urine Nitrate Negative Urine Bilirubin Negative Urine Urobilinogen 0.2-1.0 Ur Leukocyte Esterase Neg Urine RBC (Auto) 1 Urine Microscopic WBC 1 Ur Squamous Epith Cells 5 Urine Opiates Screen Negative Urine Methadone Screen Negative Ur Barbiturates Screen Negative Ur Phencyclidine Scrn Negative Ur Amphetamines Screen Negative U Benzodiazepines Scrn Negative U Oth Cocaine Metabols Negative U Cannabinoids Screen Negative Alcohol, Quantitative 08/30/18 08/30/18 04:50 04:50 WBC RBC Hgb Hct MCV MCH MCHC RDW Plt Count MPV Neut % (Auto) Lymph % (Auto) [place] % (Auto) Eos % (Auto) Baso % (Auto) Neut # (Auto) Lymph # (Auto) [place] # (Auto) Eos # (Auto) Baso # (Auto) PT INR APTT Sodium 140 Potassium 3.6 Chloride 105 Carbon Dioxide 27 Anion Gap 12 BUN 21 H Creatinine 0.7 Est GFR ( Amer) > 60 Est GFR (Non-Af Amer) > 60 Random Glucose 117 H Hemoglobin A1c 6.4 Calcium 9.3 Troponin I Triglycerides 137 Cholesterol 199 LDL Cholesterol Direct 140 H HDL Cholesterol 44 Vitamin B12 340 TSH 3rd Generation 0.24 L Urine Color Urine Clarity Urine pH Ur Specific [place] Urine Protein Urine Glucose (UA) Urine Ketones Urine Blood Urine Nitrate Urine Bilirubin Urine Urobilinogen Ur Leukocyte Esterase Urine RBC (Auto) Urine Microscopic WBC Ur Squamous Epith Cells Urine Opiates Screen Urine Methadone Screen Ur Barbiturates Screen Ur Phencyclidine Scrn Ur Amphetamines Screen U Benzodiazepines Scrn U Oth Cocaine Metabols U Cannabinoids Screen Alcohol, Quantitative Assessment & Plan (1) Chest pain Assessment and Plan: atypical etiology ? 2' to anxiety vs. underlying CAD hx somewhat unclear recent echo reviewed Status: Acute (2) Palpitations Assessment and Plan: telemetry cont bb echo Status: Acute (3) TIA (transient ischemic attack) Assessment and Plan: CTA -ve MRI -ve asa statins acei Status: Acute (4) Hyperlipidemia Assessment and Plan: cont statins Status: Acute (5) Hypertension Status: Acute
--- NOTE | 2018-08-30 13:06 | MRI ---
Date of service: 08/29/2018 PROCEDURE: MRI BRAIN WITHOUT CONTRAST HISTORY: left sided weakness COMPARISON: 11/15/2016 MRI TECHNIQUE: Multiplanar, multisequence MR images of the brain were obtained without intravenous contrast enhancement. FINDINGS: HEMORRHAGE: None DWI: No evidence of an acute or early subacute infarction. BRAIN PARENCHYMA: No mass effect or edema. No atrophy or chronic microvascular ischemic changes. VENTRICLES: Unremarkable. No hydrocephalus. CRANIUM: Unremarkable. ORBITS: Grossly unremarkable. PARANASAL SINUSES/MASTOIDS: Clear VASCULAR SYSTEM: Skull base flow voids intact. OTHER FINDINGS: None. IMPRESSION: Unremarkable non contrast enhanced MRI of the brain.
--- NOTE | 2018-08-30 13:32 | CT ---
Date of service: 08/29/2018 PROCEDURE: CT Angiography of the neck with contrast HISTORY: left sided weakness COMPARISON: None. TECHNIQUE: Contiguous axial images of the neck were obtained from the level of the skull-base to the superior mediastinum in the arteriographic phase of enhancement. Coronal and sagittal reformats or also generated. IV contrast dose: 100 cc of Visipaque Radiation dose: Total exam DLP = 0.0 mGy-cm. This CT exam was performed using one or more of the following dose reduction techniques: Automated exposure control, adjustment of the mA and/or kV according to patient size, and/or use of iterative reconstruction technique. FINDINGS: RIGHT CAROTID ARTERIES: Common Carotid Artery: Normal. Carotid Bifurcation: Calcified plaque without stenosis Internal Carotid Artery:Normal. External Carotid Artery (proximal branches): Normal. LEFT CAROTID ARTERIES: Common Carotid Artery: Normal. Carotid Bifurcation: Calcified plaque without stenosis Internal Carotid Artery:Normal. External Carotid Artery (proximal branches): Normal. VERTEBRAL ARTERIES: Right Vertebral Artery: Normal. Left Vertebral Artery: Normal. OTHER FINDINGS: There is calcification of the aorta IMPRESSION: No evidence of carotid or vertebral stenosis PROCEDURE: CT Angiography of the Brain. HISTORY: left sided weakness COMPARISON: None available. TECHNIQUE: CT angiography of the intracranial arteries was performed. Coronal and sagittal maximum intensity projection reformated images were generated. Radiation dose: Total exam DLP = 0.0 mGy-cm. This CT exam was performed using one or more of the following dose reduction techniques: Automated exposure control, adjustment of the mA and/or kV according to patient size, and/or use of iterative reconstruction technique. FINDINGS: INTERNAL CEREBRAL ARTERIES: Unremarkable. The skull base, petrous, cavernous and supraclinoid segments are bilaterally widely patent. ANTERIOR CEREBRAL ARTERIES: Unremarkable. A1 and A2 segments are widely patent. Smaller distal branches unremarkable, as visualized. MIDDLE CEREBRAL ARTERIES: Unremarkable. M1 and M2 segments are widely patent. Perisylvian branches grossly symmetric. POSTERIOR CIRCULATION: Basilar Artery: Unremarkable. Distal Vertebral Arteries: Unremarkable. Posterior Cerebral Arteries: Unremarkable. Posterior Inferior Cerebellar Arteries: Unremarkable. ANEURYSM/ VASCULAR MALFORMATIONS: None. OTHER FINDINGS: The report concurs with the preliminary [facility] report IMPRESSION: Unremarkable CT Angiography of the Brain.
--- NOTE | 2018-08-30 18:32 | CARD ---
APPROVED REPORT Date of service: 08/30/2018 EXAM: Two-dimensional and M-mode echocardiogram with Doppler and color Doppler. Other Information Quality : GoodRhythm : NSR INDICATION CVA/TIA 2D DIMENSIONS IVSd1.07 (0.7-1.1cm)LVDd3.61 (3.9-5.9cm) LVOT Diameter1.96 (1.8-2.4cm)PWd1.03 (0.7-1.1cm) IVSs1.38 (0.8-1.2cm)LVDs2.24 (2.5-4.0cm) FS (%) 37.9 %PWs1.29 (0.8-1.2cm) M-Mode DIMENSIONS Left Atrium (MM)4.38 (2.5-4.0cm)IVSd1.18 (0.7-1.1cm) Aortic Root3.00 (2.2-3.7cm)LVDd5.15 (4.0-5.6cm) Aortic Cusp Exc.1.94 (1.5-2.0cm)PWd1.21 (0.7-1.1cm) IVSs2.12 cmFS (%) 52 % LVDs2.47 (2.0-3.8cm)PWs1.79 cm Aortic Valve AoV Peak Kqcxhcus721.3cm/sAoV VTI23.7cmAO Peak GR.8mmHg LVOT Peak Cousvbuf625.1cm/sLVOT VTI19.30cmAO Mean GR.4mmHg ZANE (VMAX)1.37qx0AIJ (VTI)1.41cm2 Mitral Valve MV E Mrmnixsr75.4cm/sMV DECEL [id number] A Gppxpamk03.6cm/s MV EEK72gnR/A ratio1.0MVA (PHT)3.55cm2 TDI Lateral E' Peak V9.45cm/sMedial E' Peak V7.41cm/sE/Lateral E'7.4 E/Medial E'9.5 Tricuspid Valve TR Peak Blwcjunw311qh/sRAP BAEXGZWD92kdZhNI Peak Gr.24mmHg [id number] LEFT VENTRICLE The left ventricle is normal size. There is normal left ventricular wall thickness. The left ventricular systolic function is normal. The estimated ejection fraction is 60-65% No regional wall motion abnormalities noted.. Transmitral Doppler flow pattern is Grade I-abnormal relaxation pattern. No left ventricle thrombus noted on this study. There is no ventricular septal defect visualized. There is no left ventricular aneurysm. There is no mass noted in the left ventricle. RIGHT VENTRICLE The right ventricle is normal size. There is normal right ventricular wall thickness. The right ventricular systolic function is normal. ATRIA The left atrium is mildly dilated. The right atrium size is normal. The interatrial septum is intact with no evidence for an atrial septal defect. AORTIC VALVE The aortic valve is normal in structure. No aortic regurgitation is present. There is no aortic valvular stenosis. There is no aortic valvular vegetation. MITRAL VALVE The mitral valve is normal in structure. There is no evidence of mitral valve prolapse. There is no mitral valve stenosis. There is trace to mild mitral valve regurgitation noted. TRICUSPID VALVE The tricuspid valve is normal in structure. There is mild to moderate tricuspid valve regurgitation noted. RVSP is calculated at 33 mm Hg. There is no tricuspid valve prolapse or vegetation. There is no tricuspid valve stenosis. PULMONIC VALVE The pulmonary valve is normal in structure. There is trace pulmonic valvular regurgitation. There is no pulmonic valvular stenosis. GREAT VESSELS The aortic root is normal in size. The ascending aorta is normal in size. The pulmonary artery is normal. The IVC is normal in size and collapses >50% with inspiration. PERICARDIAL EFFUSION There is no pericardial effusion. There is no pleural effusion. <Conclusion> The estimated ejection fraction is 60-65% Transmitral Doppler flow pattern is Grade I-abnormal relaxation pattern. The left atrium is mildly dilated. There is mild to moderate tricuspid valve regurgitation noted. RVSP is calculated at 33 mm Hg. The interatrial septum is intact with no evidence for an atrial septal defect.
[2018-08-31 08:08] VITALS: BP 143/82; PULSE 61; RESP 18; TEMP 97.4; O2SAT 97
[2018-08-31] MEDS: Enoxaparin 40 mg Syringe SC SCH (09:15)
--- NOTE | 2018-08-31 09:57 | CP.PCM.PCO ---
Assessment/Plan - Assessment and Plan (Free Text) Assessment: Patient seen and examined. VSS. No neuro deficits, ambulating freely with steady gait. Discussed with Neurologist, Dr Brooks. Patient cleared for dc. MD reviewed ct scan, mri and echo and patient can go home and follow up with PCP. DIscussed with Attending who agrees. Meds reconciled.
== END 2018-08-31 11:34 | disposition home or self-care (01) ==
LOC: H.ER 15:42 → H.ERHOLD 19:15 → H.TEL 22:09
PROVIDERS: ADMIT Internal Medicine; ATTEND Internal Medicine
DX: G45.9 Transient cerebral ischemic attack, unspecified (principal); Z79.82 Long term (current) use of aspirin; I10 Essential (primary) hypertension; E78.00 Pure hypercholesterolemia, unspecified; E78.5 Hyperlipidemia, unspecified; M81.0 Age-related osteoporosis without current pathological fracture; Z86.73 Personal history of transient ischemic attack (TIA), and cerebral infarction without residual deficits; F17.210 Nicotine dependence, cigarettes, uncomplicated; I27.20 Pulmonary hypertension, unspecified; R07.89 Other chest pain; R00.2 Palpitations; M19.90 Unspecified osteoarthritis, unspecified site; I07.1 Rheumatic tricuspid insufficiency
CPT/HCPCS: 36415; 70450; 70496; 70498; 70551; 80048; 80061; 81003; 82607; 83036; 84443; 84484; 85025; 85027; 85610; 85730; 93005; 93306; 96372; 96374; 97161; 99285; G0378; G0480; G8978; G8979; G8980; J1650; J2930; Q9967

== ENCOUNTER 2018-09-02 05:08 | Emergency (ER) | payer BC ==
[2018-09-02 05:09] VITALS: BMI 26.9
[2018-09-02 05:28] VITALS: TEMP 98.4; O2SAT 99
--- NOTE | 2018-09-02 05:41 | ED PDOC ---
HPI: Headache Time Seen by Provider: 09/02/18 05:19 Chief Complaint (Nursing): Headache History Per: Patient History/Exam Limitations: no limitations Onset/Duration Of Symptoms: Hrs Current Symptoms Are (Timing): Still Present Additional Complaint(s): Hx of HTN, HLD presenting with headache, states she was admitted on 08/29, discharged yesterday for weakness and TIA. States that she went to bed at 11PM and did not have a headache. States that 3 hours ago she woke up because of a throbbing headache, non-thunderclap, not maximal in onset. States she felt her head was "hot" and was having on and off numbness and weakness of her L side. States the bottom of her L foot feels numb. No fevers, neck stiffness. PMD: Dr. Noble NIHSS Stroke Scale - Date/Time Evaluation Performed Date Performed: 09/02/18 Time Performed: 05:25 When Was NIHSS Performed: Baseline - How Severe is the Stroke Level of Consciousness: 0=Alert LOC to Questions: 0=Both comments correct LOC to commands: 0=Obeys both correctly Best Gaze: 0=Normal Visual: 0=No visual loss Facial: 0=Normal Motor Arm - Left: 0=No drift Motor Arm - Right: 0=No drift Motor Leg - Left: 0=No drift Motor Leg - Right: 0=No drift Limb Ataxia: 0=Absent Sensory: 0=Normal Best Language: 0=No aphasia Dysarthia: 0=Normal articulation Extinction & Inattention (Neglect): 0=Normal, no object Score: 0 Past Medical History Reviewed: Historical Data, Nursing Documentation, Vital Signs Vital Signs: Last Vital Signs Temp 98.4 F 09/02/18 05:23 Pulse 89 09/02/18 05:23 Resp 16 09/02/18 05:23 BP 155/79 H 09/02/18 05:23 Pulse Ox 99 09/02/18 05:23 - Medical History PMH: Anemia, Arthritis, HTN, Hypercholesterolemia, Hyperlipidemia, Osteoporosis, TIA (1 year ago) Denies: Chronic Kidney Disease - Surgical History Surgical History: Appendectomy, - Family History Family History: States: Unknown Family Hx - Immunization History Hx Tetanus Toxoid Vaccination: No Hx Influenza Vaccination: No Hx Pneumococcal Vaccination: No - Home Medications Home Medications: Ambulatory Orders Medication Instructions Recorded Atorvastatin [Lipitor] 40 mg PO DAILY #30 tab 11/16/16 Aspirin [Aspirin Chewable] 81 mg PO DAILY chew 10/30/17 Metoprolol Tartrate [Lopressor] 50 mg PO BID #60 tab 08/31/18 Aspirin/Acetaminophen/Caffeine 1 each PO Q8 PRN #30 tablet 09/02/18 [Excedrin Migraine Geltab] Colloidal Oatmeal [Eucerin Eczema 226 gm TP BID #1 cream..g. 09/02/18 Relief] - Allergies Allergies/Adverse Reactions: Allergies Allergy/AdvReac Type Severity Reaction Status Date / Time No Known Allergies Allergy Verified 09/02/18 05:28 Review of Systems ROS Statement: Except As Marked, All Systems Reviewed And Found Negative Neurological: Positive for: Weakness, Headache Physical Exam - Reviewed Nursing Documentation Reviewed: Yes Vital Signs Reviewed: Yes - Physical Exam Appears: Positive for: Well, Non-toxic, No Acute Distress Head Exam: Positive for: ATRAUMATIC, NORMAL INSPECTION, NORMOCEPHALIC Skin: Positive for: Normal Color, Warm, DRY Eye Exam: Positive for: EOMI, Normal appearance, PERRL ENT: Positive for: Normal ENT Inspection Neck: Positive for: Normal, Painless ROM Cardiovascular/Chest: Positive for: Regular Rate, Rhythm Respiratory: Positive for: CNT, Normal Breath Sounds Gastrointestinal/Abdominal: Positive for: Normal Exam, Bowel Sounds, Soft. Negative for: Tenderness Back: Positive for: Normal Inspection Extremity: Positive for: Normal ROM Neurologic/Psych: Positive for: Alert, morgue keeper II-XII, Oriented, Mood/Affect (Normal), Cerebellar Tests (Normal), Gait (Normal). Negative for: Motor/Sensory Deficits, Aphasia, Facial Droop - Laboratory Results Result Diagrams: 09/02/18 06:20 - ECG O2 Sat by Pulse Oximetry: 99 Medical Decision Making Medical Decision MakinAM Patient presenting with headache, subjective numbness and weakness --NIH 0, patient very well appearing, nonfocal exam --Patient had recent MRI/CTA that were negative for CVA --Currently symptoms not reflective of acute CVA, more consistent with complicated migraine --Will check CT, will give toradol/reglan, and re-eval [address] Brooks, who remembers patient well from recent admission, and says no intervention is necessary at this time. Patient can be discharged. CT SCAN OF THE BRAIN WITHOUT IV CONTRAST CLINICAL INDICATION: Headache and numbness. TECHNIQUE: Axial and reformatted sagittal and coronal images of the brain obtained without IV contrast administration. COMPARISON: MRI of the head on 11/15/2016. Normal size of the ventricles and extra-axial spaces for the patient's age. Normal white matter tracts of the supratentorial brain. Normal basal ganglia and thalami. Normal brainstem. Normal cerebellum. There is no demonstrated extra-axial, intraparenchymal, or intraventricular hemorrhage. There are no findings of an acute ischemic infarction. Normal calvarium. There is no demonstrated fracture. Normal soft tissue structures. Normal visualized paranasal sinuses. IMPRESSION: Normal unenhanced CT scan of the brain. Patient is feeling much better, no longer having pain, numbness, weakness, and all of her symptoms have resolved after medication. Advised to followup with Dr. Noble and neurolgy as previously scheduled. Vitals are normal, very well appearing upon discharge. Patient also complaining of dry, itchy skin, reji recommend Eucerin. Disposition - Clinical Impression Clinical Impression: Headache, Eczema - Patient ED Disposition Is Patient to be Admitted: No - Disposition Referrals: Blake Noble MD [Staff Provider] - Disposition Time: 06:53 Condition: STABLE Prescriptions: Aspirin/Acetaminophen/Caffeine [Excedrin Migraine Geltab] 1 each PO Q8 PRN #30 tablet PRN Reason: Pain, Moderate (4-7) Colloidal Oatmeal [Eucerin Eczema Relief] 226 gm TP BID #1 cream..g. Instructions: Eczema (Atopic Dermatitis), Migraine Headache (DC) Forms: [address] ([place]) Print Language: UPPER SORBIAN
[2018-09-02 06:42] LABS: BASO % 0.5 % (0.0-2.0); EOS # 0.6 K/uL (0.0-0.7); EOS % 6.3 % (0.0-4.0); HEMOGLOBIN 14.7 g/dL (12.0-16.0); LYMPH # 2.7 K/uL (1.0-4.3); LYMPH % 28.7 % (20.0-40.0); MEAN CELL VOLUME 81.2 fl (81.0-99.0); MEAN CORPUSCULAR HEMOGLOBIN 26.5 pg (27.0-31.0); MEAN CORPUSCULAR HGB CONC 32.6 g/dL (33.0-37.0); MEAN PLATELET VOLUME 10.6 fl (7.2-11.7); MONO # 0.8 K/uL (0.0-0.8); MONO % 8.9 % (0.0-10.0); NEUT # 5.3 K/uL (1.8-7.0); NEUT % 55.6 % (50.0-75.0); NRBC % 0.1 % (0.0-0.0); RBC 5.56 Mil/uL (3.80-5.20); RED CELL DISTRIBUTION WIDTH 14.5 % (11.5-14.5); WHITE BLOOD COUNT 9.5 K/uL (4.8-10.8)
[2018-09-02 07:02] LABS: BLOOD UREA NITROGEN 14 mg/dl (7-17); CALCIUM 8.8 mg/dL (8.4-10.2); GFR NON-AFRICAN AMERICAN > 60
--- NOTE | 2018-09-02 07:34 | CT ---
Date of service: 09/02/2018 PROCEDURE: CT HEAD WITHOUT CONTRAST. HISTORY: numbness, [place] COMPARISON: None available. TECHNIQUE: Axial computed tomography images were obtained through the head/brain without intravenous contrast. Radiation dose: Total exam DLP = 714.42 mGy-cm. This CT exam was performed using one or more of the following dose reduction techniques: Automated exposure control, adjustment of the mA and/or kV according to patient size, and/or use of iterative reconstruction technique. FINDINGS: HEMORRHAGE: No intracranial hemorrhage. BRAIN: No mass effect or edema. No atrophy or chronic microvascular ischemic changes. VENTRICLES: Unremarkable. No hydrocephalus. CALVARIUM: Unremarkable. PARANASAL SINUSES: Unremarkable as visualized. No significant inflammatory changes. MASTOID AIR CELLS: Unremarkable as visualized. No inflammatory changes. OTHER FINDINGS: None. IMPRESSION: Normal CT of the Head.
[2018-09-02 08:48] VITALS: BP 124/73; PULSE 72; RESP 18
--- NOTE | 2018-09-02 17:29 | CARD ---
APPROVED REPORT Date of service: 09/02/2018 EKG Measurement Heart [id number] ID [id number] <Conclusion> Normal sinus rhythm Possible Left atrial enlargement Nonspecific T wave abnormality Abnormal ECG
== END 2018-09-02 08:35 | disposition home or self-care (01) ==
LOC: H.ER 05:08
DX: R51 Headache (principal); L30.9 Dermatitis, unspecified; I10 Essential (primary) hypertension; Z86.73 Personal history of transient ischemic attack (TIA), and cerebral infarction without residual deficits; M81.0 Age-related osteoporosis without current pathological fracture; Z79.82 Long term (current) use of aspirin
CPT/HCPCS: 70450; 80048; 85025; 93005; 96374; 99285; J1885; J2765

== ENCOUNTER 2018-09-28 00:37 | Observation (INO) | payer BC ==
[2018-09-28 00:38] VITALS: BMI 26.9
--- NOTE | 2018-09-28 01:47 | ED PDOC ---
HPI: Chest Pain Time Seen by Provider: 09/28/18 00:45 Chief Complaint (Nursing): Chest Pain Chief Complaint (Provider): Chest Pain History Per: Patient, Family (Daughter) History/Exam Limitations: no limitations Onset/Duration Of Symptoms: Days (x2) Current Symptoms Are (Timing): Intermittent Episodes Additional Complaint(s): 63 y/o female with history of hypertension, high cholesterol and arthritis presents to ER for evaluation of intermittent chest pain onset 2 days. Patient reports pain radiates from back to her chest. She states the pain was constant on Tuesday but became intermittent. Patient reports taking Motrin with transient relief. She denies any fever or cough. Translation was done through her daughter at bedside. PMD: Blake Sales Past Medical History Reviewed: Historical Data, Nursing Documentation, Vital Signs Vital Signs: Last Vital Signs Temp 98.7 F 09/28/18 00:41 Pulse 100 H 09/28/18 00:46 Resp 16 09/28/18 00:41 BP 140/73 09/28/18 00:41 Pulse Ox 100 09/28/18 00:41 MALCOLM report viewed?: Yes - Medical History PMH: Anemia, Arthritis, HTN, Hypercholesterolemia, Hyperlipidemia, Osteoporosis, TIA (1 year ago) Denies: Chronic Kidney Disease - Surgical History Surgical History: Appendectomy, - Family History Family History: States: Unknown Family Hx - Social History Current smoker - smoking cessation education provided: Yes (10 cigarettes/day) Alcohol: None Drugs: Denies - Immunization History Hx Tetanus Toxoid Vaccination: No Hx Influenza Vaccination: No Hx Pneumococcal Vaccination: No - Home Medications Home Medications: Ambulatory Orders Medication Instructions Recorded Atorvastatin [Lipitor] 40 mg PO DAILY #30 tab 11/16/16 Aspirin [Aspirin Chewable] 81 mg PO DAILY chew 10/30/17 Metoprolol Tartrate [Lopressor] 50 mg PO BID #60 tab 08/31/18 Aspirin/Acetaminophen/Caffeine 1 each PO Q8 PRN #30 tablet 09/02/18 [Excedrin Migraine Geltab] Colloidal Oatmeal [Eucerin Eczema 226 gm TP BID #1 cream..g. 09/02/18 Relief] - Allergies Allergies/Adverse Reactions: Allergies Allergy/AdvReac Type Severity Reaction Status Date / Time No Known Allergies Allergy Verified 09/02/18 05:28 ANGELICA Risk Score for UA/NSTEMI - ANGELICA Risk Score Age > 64: NO 3 or more CAD Risk Factors: NO Known CAD (Stenosis greater than 50%): NO Aspirin use in past 7 days: NO Severe Angina: NO EKG ST changes greater than 0.5mm: NO Positive Cardiac Marker: NO ANGELICA Score: 0 Risk %: 5% Curb-65 Severity Score - CURB-65 Severity Score Confusion: No Bun >19mg/dl (>7mmol/L): No Respiratory Rate greater than/equal to 30: No Systolic BP <90 or Diastolic BP less than/equal 60mmHg: No Age >64: No Curb-65 Score: 0 Percentage 30-day mortality: 0.6% Wells Criteria for PE - Wells Criteria for Pulmonary Embolism Clinical Signs and Symptoms of DVT: No P.E is #1 Diagnosis, or Equally Likely: No Heart Rate >100: No Immobilization at least 3 days;Surgery previous 4 weeks: No Previous, objectively diagnosed PE or DVT: No Hemoptysis: No Malignancy w/treatment within 6 months, or palliative: No Total Score: 0 Review of Systems ROS Statement: Except As Marked, All Systems Reviewed And Found Negative Constitutional: Negative for: Fever Cardiovascular: Positive for: Chest Pain Respiratory: Negative for: Cough Physical Exam - Reviewed Nursing Documentation Reviewed: Yes Vital Signs Reviewed: Yes - Physical Exam Appears: Positive for: Non-toxic, No Acute Distress Head Exam: Positive for: ATRAUMATIC, NORMOCEPHALIC Skin: Positive for: Normal Color, Warm, Dry Eye Exam: Positive for: Normal appearance, EOMI, PERRL ENT: Positive for: Normal ENT Inspection Neck: Positive for: Normal Cardiovascular/Chest: Positive for: Regular Rate, Rhythm. Negative for: Murmur Respiratory: Positive for: Normal Breath Sounds. Negative for: Wheezing Gastrointestinal/Abdominal: Positive for: Normal Exam, Soft. Negative for: Tenderness Back: Positive for: Normal Inspection. Negative for: L CVA Tenderness, R CVA Tenderness Extremity: Positive for: Normal ROM. Negative for: Pedal Edema, Deformity Neurologic/Psych: Positive for: Alert, Oriented (x3) - Laboratory Results Result Diagrams: 09/28/18 02:00 09/28/18 02:00 - ECG ECG Rhythm: Positive for: Sinus Rhythm Interpretation Of ECG: Compared to prior EKG from September 2018, in which patient had similar results Rate: 100 O2 Sat by Pulse Oximetry: 100 (RA) Pulse Ox Interpretation: Normal Medical Decision Making Medical Decision Making: Time: 0150 Initial Plan: chest pain, rule out CAD, rule out dissection (will hold ASA until the study is done) --CMP --Troponin --CBC --Chest x-ray --CT angio 0425 Patient is to be admitted after CT angio is done. spoke with Dr Sales pts doctor who agrees with the plan. 0514 CTA OF THE CHEST WITH IV CONTRAST CLINICAL HISTORY: Chest pain, back pain. TECHNIQUE: Axial and reformatted sagittal and coronal images of the chest obtained after bolus IV contrast administration. COMPARISON: 08/19/2013. FINDINGS: Bilateral basilar subsegmental atelectatic pulmonary changes. Normal enhancement of the main pulmonary artery and right and left pulmonary a rteries. Normal enhancement of the bilateral peripheral pulmonary arteries. There is no demonstrated pulmonary embolism. Normal thoracic aorta and visualized great vessels. There is no demonstrated aortic dissection. Mildly enlarged heart and normal pericardium. Normal mediastinum. Normal hilar regions. Normal visualized trachea and bronchi. The remaining lungs are well expanded. Normal remaining pulmonary parenchyma. Normal pleura. Normal chest wall structures. Normal osseous structures. Small sliding hiatal hernia. IMPRESSION: No demonstrated pulmonary embolism or arterial dissection. Bilateral basilar subsegmental atelectatic pulmonary changes. CT SCAN OF THE ABDOMEN AND PELVIS WITH CONTRAST. CLINICAL HISTORY: Abdominal pain. TECHNIQUE: Multiple axial and coronal CT images were obtained through the abdomen and pelvis after administration of intravenous contrast material. COMMENTS: 6.2x6.7 cm complex cystic lesion of the left adnexa. Scattered calcified atheromatous plaques of the aorta without evidence of abdominal aortic aneurysm. No evidence of aortic dissection. The liver is of uniform attenuation without mass or defect. There is no intra or extrahepatic biliary ductal dilatation. The spleen is normal. The gallbladder is within normal limits. The pancreas is of normal contour and attenuation characteristics. There is no evidence of adrenal mass. Both kidneys demonstrate prompt and equal nephrograms. The kidneys are normal in size, shape and configuration. There is no evidence of renal or ureteral mass. No renal or ureteral calculi are identified. There is no hydroureter or hydronephrosis. No evidence for appendicitis. There is no bowel wall thickening. No evidence for small or large bowel obstruction. There is no evidence of abdominal ascites or lymphadenopathy. There is no evidence of intrinsic or extrinsic bladder mass. There is no pelvic ascites or lymphadenopathy. Distended bladder. The bony structures are free of lytic or blastic lesions. IMPRESSION: 6.2x6.7 cm complex cystic lesion of the left adnexa. This can be secondary to a pedunculated subserosal fibroid arising from the uterus or the broad ligament. Other adnexal pathologies are included in differential diagnosis. Scattered calcified atheromatous plaques of the aorta without evidence of abdominal aortic aneurysm. No evidence of aortic dissection. Mild constipation. Distended bladder. ASA ordered since CT negative for dissection Scribe Attestation: Documented by Alaina Gonzales, acting as a scribe for Osvaldo Anderson MD. Provider Scribe Attestation: All medical record entries made by the Scribe were at my direction and personally dictated by me. I have reviewed the chart and agree that the record accurately reflects my personal performance of the history, physical exam, medical decision making, and the department course for this patient. I have also personally directed, reviewed, and agree with the discharge instructions and disposition. Disposition - Clinical Impression Clinical Impression: Acute chest pain - Patient ED Disposition Is Patient to be Admitted: Yes - Disposition Disposition Time: 04:00 Condition: STABLE
[2018-09-28 02:03] LABS: BASO # 0.1 K/uL (0.0-0.2); BASO % 0.6 % (0.0-2.0); EOS # 0.6 K/uL (0.0-0.7); EOS % 7.1 % (0.0-4.0); HEMOGLOBIN 13.8 g/dL (12.0-16.0); LYMPH # 1.8 K/uL (1.0-4.3); MEAN CELL VOLUME 81.7 fl (81.0-99.0); MEAN CORPUSCULAR HEMOGLOBIN 26.3 pg (27.0-31.0); MEAN CORPUSCULAR HGB CONC 32.3 g/dL (33.0-37.0); MEAN PLATELET VOLUME 10.7 fl (7.2-11.7); MONO # 1.1 K/uL (0.0-0.8); NEUT # 5.5 K/uL (1.8-7.0); NEUT % 60.3 % (50.0-75.0); NRBC % 0.1 % (0.0-0.0); RBC 5.23 Mil/uL (3.80-5.20); RED CELL DISTRIBUTION WIDTH 14.6 % (11.5-14.5); WHITE BLOOD COUNT 9.1 K/uL (4.8-10.8)
[2018-09-28 02:25] LABS: ALB/GLOB RATIO 0.9 (1.0-2.1); ALT/SGPT 22 U/L (9-52); AST/SGOT 17 U/L (14-36); BLOOD UREA NITROGEN 9 mg/dl (7-17); CALCIUM 8.9 mg/dL (8.4-10.2); GFR NON-AFRICAN AMERICAN > 60
[2018-09-28] MEDS ORDERED: Morphine 4 MG/ML VIAL ONE (03:07)
[2018-09-28] MEDS ORDERED: Iodixanol 320 MG/ML 100 ML BOTTLE IV ONE (03:50)
[2018-09-28] MEDS ORDERED: Sodium Chloride 0.9% 50 ML IV ONE (03:50)
--- NOTE | 2018-09-28 08:31 | RAD ---
Date of service: 09/28/2018 HISTORY: chest pain COMPARISON: 10/29/2017. FINDINGS: LUNGS: The lungs are well inflated and clear. PLEURA: No pleural effusions or pneumothorax. CARDIOVASCULAR: The heart is normal in size. There are no aortic atherosclerotic calcifications present. OSSEOUS STRUCTURES: Within normal limits for the patient's age. VISUALIZED UPPER ABDOMEN: Normal. OTHER FINDINGS: None. IMPRESSION: No active pulmonary disease.
--- NOTE | 2018-09-28 09:03 | CP.PCM.HP ---
<Kristi Martinez - Last Filed: 09/28/18 10:58> History of Present Illness - History of Present Illness History of Present Illness: 63 yo F with hx hypertension, HLD, arthritis, admitted due to chest pain and to r/o ACS. Pt presented to ED overnight, accompanied by daughter, with complaint of intermittent chest pain x 2 days; reported that pain radiated from her back to her chest. She had taken NSAIDS at home with transient relief. PMD: Blake Noble In ED: Vitals: afebrile, BP 140/73, pulse 100, resp 16, SpO2 100% on room air EKG: sinus rhythm at 100; nonspecific T wave changes Labs: no leukocytosis, no electrolyte abnormalities, BUN 9, Cr 0.6 Troponin 0.0160, neg CT angio ordered to r/o dissection and/or aneurism Pt seen this morning with Dr. Noble. No acute events overnight, reports some relief of pain. No crushing pain, no rad to jaw/arm, no difficulties breatihng. Present on Admission - Present on Admission Any Indicators Present on Admission: No Review of Systems - Review of Systems All systems: reviewed and no additional remarkable complaints except Review of Systems: as per hpi Past Patient History - Past Medical History & Family History Past Medical History?: Yes - CARDIAC Hx Cardiac Disorders: Yes (HTN; hyperlipidemia) Hx Hypercholesterolemia: Yes Hx Hypertension: Yes - PULMONARY Hx Respiratory Disorders: No - NEUROLOGICAL Hx Neurological Disorder: Yes Hx Transient Ischemic Attacks (TIA): Yes (1 year ago) - HEENT Hx HEENT Problems: No - RENAL Hx Chronic Kidney Disease: No - ENDOCRINE/METABOLIC Hx Endocrine Disorders: No - HEMATOLOGICAL/ONCOLOGICAL Hx Blood Disorders: Yes (anemia) Hx AIDS: No Hx Anemia: Yes Hx Human Immunodeficiency Virus (HIV): No - INTEGUMENTARY Hx Dermatological Problems: No - MUSCULOSKELETAL/RHEUMATOLOGICAL Hx Musculoskeletal Disorders: Yes Hx Arthritis: Yes Hx Falls: No Hx Osteoporosis: Yes - GASTROINTESTINAL Hx Gastrointestinal Disorders: No - GENITOURINARY/GYNECOLOGICAL Hx Genitourinary Disorders: No - PSYCHIATRIC Hx Psychophysiologic Disorder: No Hx Substance Use: No - SURGICAL HISTORY Hx Surgeries: Yes Hx Appendectomy: Yes Hx Section: Yes - ANESTHESIA Hx Anesthesia: Yes Hx Anesthesia Reactions: No Meds Allergies/Adverse Reactions: Allergies Allergy/AdvReac Type Severity Reaction Status Date / Time No Known Allergies Allergy Verified 09/02/18 05:28 Physical Exam - Constitutional Appears: No Acute Distress - Head Exam Head Exam: NORMAL INSPECTION - Eye Exam Eye Exam: Normal appearance - Respiratory Exam Respiratory Exam: Clear to Auscultation Bilateral, NORMAL BREATHING PATTERN - Cardiovascular Exam Cardiovascular Exam: REGULAR RHYTHM, +S1, +S2 - GI/Abdominal Exam GI & Abdominal Exam: Soft. absent: Tenderness - Extremities Exam Extremities exam: Positive for: normal inspection - Back Exam Back exam: NORMAL INSPECTION - Neurological Exam Neurological exam: Alert - Psychiatric Exam Psychiatric exam: Normal Affect - Skin Skin Exam: Dry, Warm Results - Vital Signs Recent Vital Signs: Last Vital Signs Temp 97.9 F 09/28/18 06:30 Pulse 87 09/28/18 06:30 Resp 18 09/28/18 06:30 BP 112/73 09/28/18 06:30 Pulse Ox 99 09/28/18 06:30 - Labs Result Diagrams: 09/28/18 02:00 09/28/18 02:00 Labs: Laboratory Results - last 24 hr 09/28/18 09/28/18 02:00 02:00 WBC 9.1 RBC 5.23 H Hgb 13.8 Hct 42.7 MCV 81.7 MCH 26.3 L MCHC 32.3 L RDW 14.6 H Plt Count 199 MPV 10.7 Neut % (Auto) 60.3 Lymph % (Auto) 20.0 Anson % (Auto) 12.0 H Eos % (Auto) 7.1 H Baso % (Auto) 0.6 Neut # (Auto) 5.5 Lymph # (Auto) 1.8 Anson # (Auto) 1.1 H Eos # (Auto) 0.6 Baso # (Auto) 0.1 Sodium 138 Potassium 3.7 Chloride 104 Carbon Dioxide 25 Anion Gap 13 BUN 9 Creatinine 0.6 L Est GFR ( Amer) > 60 Est GFR (Non-Af Amer) > 60 Random Glucose 121 H Calcium 8.9 Total Bilirubin 0.6 AST 17 ALT 22 Alkaline Phosphatase 112 Troponin I 0.0160 Total Protein 8.3 H Albumin 4.0 Globulin 4.3 H Albumin/Globulin Ratio 0.9 L Assessment & Plan - Assessment and Plan (Free Text) Assessment: 63 yo F with hx hypertension, HLD, arthritis, admitted due to chest pain and to r/o ACS. Troponin x1 neg. Plan: - Admitted to tele, tele monitoring - Troponin Qhrs x 2 - EKG with nonacute changes, cardiology consult - Dr. Pritchett - CXR no active pulmonary disease - CTA: no demonstrated pulmonary embolism or arterial dissection; possible fibroid in uterus (outpt f/u) - Resume statin and b-amisha home meds - Heart Healthy diet - SCDs <Noble,Blake K - Last Filed: 09/28/18 12:10> Results - Vital Signs Recent Vital Signs: Last Vital Signs Temp 97.8 F 09/28/18 09:00 Pulse 88 09/28/18 09:00 Resp 22 09/28/18 09:00 BP 115/65 09/28/18 09:00 Pulse Ox 100 09/28/18 09:00 - Labs Result Diagrams: 09/28/18 02:00 09/28/18 02:00 Labs: Laboratory Results - last 24 hr 09/28/18 09/28/18 09/28/18 02:00 02:00 09:15 WBC 9.1 RBC 5.23 H Hgb 13.8 Hct 42.7 MCV 81.7 MCH 26.3 L MCHC 32.3 L RDW 14.6 H Plt Count 199 MPV 10.7 Neut % (Auto) 60.3 Lymph % (Auto) 20.0 Anson % (Auto) 12.0 H Eos % (Auto) 7.1 H Baso % (Auto) 0.6 Neut # (Auto) 5.5 Lymph # (Auto) 1.8 Anson # (Auto) 1.1 H Eos # (Auto) 0.6 Baso # (Auto) 0.1 Sodium 138 Potassium 3.7 Chloride 104 Carbon Dioxide 25 Anion Gap 13 BUN 9 Creatinine 0.6 L Est GFR ( Amer) > 60 Est GFR (Non-Af Amer) > 60 Random Glucose 121 H Calcium 8.9 Total Bilirubin 0.6 AST 17 ALT 22 Alkaline Phosphatase 112 Troponin I 0.0160 < 0.0120 Total Protein 8.3 H Albumin 4.0 Globulin 4.3 H Albumin/Globulin Ratio 0.9 L Assessment & Plan - Assessment and Plan (Free Text) Plan: Patient was personally seen and examined by me in rounds with residents. Available labs and diagnostic data reviewed. Case, Patient's condition and management plan discussed with residents in rounds. Agree with resident's progress note. Plan: As ordered.
--- NOTE | 2018-09-28 10:32 | CT ---
PROCEDURE: CT Angiography Chest, Abdomen and Pelvis with and without intravenous contrast HISTORY: back chest pain COMPARISON: None. TECHNIQUE: Contiguous axial images of the chest, abdomen and pelvis were obtained in the phase of aortic enhancement. A noncontrast enhanced CT of the chest was also obtained to evaluate for possible intramural thrombus. Coronal and sagittal reformats were generated. IV dose administered: 90 cc Visipaque 320. Radiation dose: Total exam DLP = 739.09 mGy-cm. This CT exam was performed using one or more of the following dose reduction techniques: Automated exposure control, adjustment of the mA and/or kV according to patient size, and/or use of iterative reconstruction technique. FINDINGS: CT ANGIOGRAPHY OF THE CHEST WITH & WITHOUT CONTRAST: AORTA (CHEST AND ABDOMEN): The thoracic and abdominal aorta are unremarkable, without aneurysm, dissection or rupture. No intramural thrombus identified in the thoracic aorta on the non-contrast ct of the chest. The celiac axis, superior mesenteric artery, inferior mesenteric artery and the renal arteries are widely patent. The pelvic arteries are unremarkable. LUNGS: Linear atelectasis/scarring at the lung bases. MEDIASTINUM: Unremarkable. Normal caliber aorta and pulmonary arterial trunk. No aortic dissection. Normal size heart. LYMPH NODES: Unremarkable. PLEURA: Unremarkable. No pneumothorax. No pleural fluid. BONES: Unremarkable. OTHER FINDINGS: None. CT ANGIOGRAPHY OF THE ABDOMEN AND PELVIS WITH CONTRAST: LIVER: Unremarkable. No gross lesion or ductal dilatation. GALLBLADDER AND BILE DUCTS: Unremarkable. PANCREAS: Unremarkable. No gross lesion or ductal dilatation. SPLEEN: Unremarkable. ADRENALS: Unremarkable. No mass. KIDNEYS AND URETERS: Unremarkable. No hydronephrosis. No solid mass. VASCULATURE: Unremarkable. No aortic aneurysm. No aortic atherosclerotic calcification or mural plaque present. STOMACH AND BOWEL: Unremarkable. No obstruction. No gross mural thickening. APPENDIX: Prior appendectomy. PERITONEUM: Unremarkable. No free fluid. No free air. LYMPH NODES: Unremarkable. No enlarged lymph nodes. BLADDER: Unremarkable. REPRODUCTIVE: Anteverted uterus containing what appears to be partially calcified mass/pedunculated uterine fibroid. Pelvic ultrasound recommended for further evaluation. BONES: No acute fracture. OTHER FINDINGS: None. IMPRESSION: Negative study for aortic aneurysm or dissection Anteverted uterus likely containing fibroid. Pelvic ultrasound may clarify this observation. Additional benign and/or incidental findings described above. Concordant results (preliminary interpretation) provided by JEOVANY ROBERTS. Procedure Completed: 04:27. Preliminary Report: Dictated and Authenticated: 05:14. Final Interpretation: 10:29
--- NOTE | 2018-09-28 15:50 | CP.PCM.CON ---
History of Present Illness - History of Present Illness History of Present Illness: Consultation for evaluation of chest pain HPI: Review of Systems - Review of Systems Systems not reviewed;Unavailable: Acuity of Condition - Constitutional Constitutional: As Per HPI - EENT Eyes: As Per HPI Ears: As Per HPI Nose/Mouth/Throat: As Per HPI - Breasts Breasts: As Per HPI - Cardiovascular Cardiovascular: As Per HPI - Respiratory Respiratory: As Per HPI - Gastrointestinal Gastrointestinal: As Per HPI - Genitourinary Genitourinary: As Per HPI - Reproductive: Female Reproductive:Female: As Per HPI - Menstruation Menstruation: As Per HPI - Musculoskeletal Musculoskeletal: As Per HPI - Integumentary Integumentary: As Per HPI - Neurological Neurological: As Per HPI - Psychiatric Psychiatric: As Per HPI - Endocrine Endocrine: As Per HPI - Hematologic/Lymphatic Hematologic: As Per HPI Past Patient History - Past Medical History & Family History Past Medical History?: Yes - Past Social History Smoking Status: Current Some Days Smoker - CARDIAC Hx Cardiac Disorders: Yes (HTN; hyperlipidemia) Hx Hypercholesterolemia: Yes Hx Hypertension: Yes - PULMONARY Hx Respiratory Disorders: No - NEUROLOGICAL Hx Neurological Disorder: Yes Hx Transient Ischemic Attacks (TIA): Yes (1 year ago) - HEENT Hx HEENT Problems: No - RENAL Hx Chronic Kidney Disease: No - ENDOCRINE/METABOLIC Hx Endocrine Disorders: No - HEMATOLOGICAL/ONCOLOGICAL Hx Blood Disorders: Yes (anemia) Hx AIDS: No Hx Anemia: Yes Hx Human Immunodeficiency Virus (HIV): No - INTEGUMENTARY Hx Dermatological Problems: No - MUSCULOSKELETAL/RHEUMATOLOGICAL Hx Musculoskeletal Disorders: Yes Hx Arthritis: Yes Hx Falls: No Hx Osteoporosis: Yes - GASTROINTESTINAL Hx Gastrointestinal Disorders: No - GENITOURINARY/GYNECOLOGICAL Hx Genitourinary Disorders: No - PSYCHIATRIC Hx Psychophysiologic Disorder: No Hx Substance Use: No - SURGICAL HISTORY Hx Surgeries: Yes Hx Appendectomy: Yes Hx Section: Yes - ANESTHESIA Hx Anesthesia: Yes Hx Anesthesia Reactions: No Meds Allergies/Adverse Reactions: Allergies Allergy/AdvReac Type Severity Reaction Status Date / Time No Known Allergies Allergy Verified 09/02/18 05:28 - Medications Medications: Current Medications Atorvastatin Calcium (Lipitor) 40 mg PO DAILY ANGELA Metoprolol Tartrate (Lopressor) 50 mg PO BID ANGELA Physical Exam - Constitutional Appears: Well - Head Exam Head Exam: ATRAUMATIC, NORMAL INSPECTION, NORMOCEPHALIC - Eye Exam Eye Exam: EOMI, Normal appearance, PERRL Pupil Exam: NORMAL ACCOMODATION, PERRL - ENT Exam ENT Exam: Mucous Membranes Moist, Normal Exam - Neck Exam Neck exam: Positive for: Normal Inspection - Respiratory Exam Respiratory Exam: Clear to Auscultation Bilateral, NORMAL BREATHING PATTERN - Cardiovascular Exam Cardiovascular Exam: REGULAR RHYTHM, RRR, +S1, +S2, Systolic Murmur - GI/Abdominal Exam GI & Abdominal Exam: Normal Bowel Sounds, Soft. absent: Tenderness - Exam Exam: Circumcision, NORMAL INSPECTION External exam: NORMAL EXTERNAL EXAM Speculum exam: NORMAL SPECULUM EXAM Bimanual exam: NORMAL BIMANUAL EXAM - Extremities Exam Extremities exam: Positive for: normal inspection - Neurological Exam Neurological exam: Alert, CN II-XII Intact, Normal Gait, Oriented x3, Reflexes Normal - Psychiatric Exam Psychiatric exam: Normal Affect, Normal Mood - Skin Skin Exam: Dry, Intact, Normal Color, Warm Results - Vital Signs Recent Vital Signs: Last Vital Signs Temp 98 F 09/28/18 13:00 Pulse 99 H 09/28/18 13:00 Resp 22 09/28/18 13:00 BP 120/70 09/28/18 13:00 Pulse Ox 99 09/28/18 13:00 - Labs Result Diagrams: 09/28/18 02:00 09/28/18 02:00 Labs: Laboratory Results - last 24 hr 09/28/18 09/28/18 09/28/18 02:00 02:00 09:15 WBC 9.1 RBC 5.23 H Hgb 13.8 Hct 42.7 MCV 81.7 MCH 26.3 L MCHC 32.3 L RDW 14.6 H Plt Count 199 MPV 10.7 Neut % (Auto) 60.3 Lymph % (Auto) 20.0 [place] % (Auto) 12.0 H Eos % (Auto) 7.1 H Baso % (Auto) 0.6 Neut # (Auto) 5.5 Lymph # (Auto) 1.8 [place] # (Auto) 1.1 H Eos # (Auto) 0.6 Baso # (Auto) 0.1 Sodium 138 Potassium 3.7 Chloride 104 Carbon Dioxide 25 Anion Gap 13 BUN 9 Creatinine 0.6 L Est GFR ( Amer) > 60 Est GFR (Non-Af Amer) > 60 Random Glucose 121 H Calcium 8.9 Total Bilirubin 0.6 AST 17 ALT 22 Alkaline Phosphatase 112 Troponin I 0.0160 < 0.0120 Total Protein 8.3 H Albumin 4.0 Globulin 4.3 H Albumin/Globulin Ratio 0.9 L Assessment & Plan (1) Chest pain Status: Acute (2) Hyperlipidemia Status: Acute (3) Hypertension Status: Acute (4) TIA (transient ischemic attack) Status: Acute
[2018-09-28 16:23] VITALS: BP 98/51; RESP 20; TEMP 98.2; O2SAT 100
[2018-09-28 16:37] VITALS: PULSE 117
--- NOTE | 2018-09-28 16:48 | CP.PCM.DIS ---
Provider - Provider Date of Admission: 09/28/18 03:38 Attending physician: Blake Noble MD Primary care physician: Dr. Noble Consults: 09/28/18 10:56 Cardiology Consult Routine Comment: chest pain, EKG changes Consulting Provider: Odin Pritchett Consulting Physician: Odin Pritchett Reason for Consult: chest pain, EKG changes Time Spent in preparation of Discharge (in minutes): 30 Diagnosis - Discharge Diagnosis (1) Chest pain Status: Resolved Hospital Course - Lab Results Lab Results: Most Recent Lab Values WBC 9.1 K/uL (4.8-10.8) 09/28/18 02:00 RBC 5.23 Mil/uL (3.80-5.20) H 09/28/18 02:00 Hgb 13.8 g/dL (12.0-16.0) 09/28/18 02:00 Hct 42.7 % (34.0-47.0) 09/28/18 02:00 MCV 81.7 fl (81.0-99.0) 09/28/18 02:00 MCH 26.3 pg (27.0-31.0) L 09/28/18 02:00 MCHC 32.3 g/dL (33.0-37.0) L 09/28/18 02:00 RDW 14.6 % (11.5-14.5) H 09/28/18 02:00 Plt Count 199 K/uL (130-400) 09/28/18 02:00 MPV 10.7 fl (7.2-11.7) 09/28/18 02:00 Neut % (Auto) 60.3 % (50.0-75.0) 09/28/18 02:00 Lymph % (Auto) 20.0 % (20.0-40.0) 09/28/18 02:00 [place] % (Auto) 12.0 % (0.0-10.0) H 09/28/18 02:00 Eos % (Auto) 7.1 % (0.0-4.0) H 09/28/18 02:00 Baso % (Auto) 0.6 % (0.0-2.0) 09/28/18 02:00 Neut # (Auto) 5.5 K/uL (1.8-7.0) 09/28/18 02:00 Lymph # (Auto) 1.8 K/uL (1.0-4.3) 09/28/18 02:00 [place] # (Auto) 1.1 K/uL (0.0-0.8) H 09/28/18 02:00 Eos # (Auto) 0.6 K/uL (0.0-0.7) 09/28/18 02:00 Baso # (Auto) 0.1 K/uL (0.0-0.2) 09/28/18 02:00 Sodium 138 mmol/l (132-148) 09/28/18 02:00 Potassium 3.7 MMOL/L (3.6-5.0) 09/28/18 02:00 Chloride 104 mmol/L (98-107) 09/28/18 02:00 Carbon Dioxide 25 mmol/L (22-30) 09/28/18 02:00 Anion Gap 13 (10-20) 09/28/18 02:00 BUN 9 mg/dl (7-17) 09/28/18 02:00 Creatinine 0.6 mg/dl (0.7-1.2) L 09/28/18 02:00 Est GFR ( Amer) > 60 09/28/18 02:00 Est GFR (Non-Af Amer) > 60 09/28/18 02:00 Random Glucose 121 mg/dL (65-105) H 09/28/18 02:00 Calcium 8.9 mg/dL (8.4-10.2) 09/28/18 02:00 Total Bilirubin 0.6 mg/dl (0.2-1.3) 09/28/18 02:00 AST 17 U/L (14-36) 09/28/18 02:00 ALT 22 U/L (9-52) 09/28/18 02:00 Alkaline Phosphatase 112 U/L (38-126) 09/28/18 02:00 Troponin I < 0.0120 ng/mL (0.00-0.120) 09/28/18 09:15 Total Protein 8.3 G/DL (6.3-8.2) H 09/28/18 02:00 Albumin 4.0 g/dL (3.5-5.0) 09/28/18 02:00 Globulin 4.3 gm/dL (2.2-3.9) H 09/28/18 02:00 Albumin/Globulin Ratio 0.9 (1.0-2.1) L 09/28/18 02:00 - Hospital Course Hospital Course: 63 yo F with hx hypertension, HLD, arthritis, admitted due to chest pain and to r/o ACS. Pt presented to ED overnight, accompanied by daughter, with complaint of intermittent chest pain x 2 days; reported that pain radiated from her back to her chest. She had taken NSAIDS at home with transient relief. Two troponins were negative 8 hrs apart, EKG showed nonspecific changes seen on prior EKGs. Pt was evaluated by Dr. Pritchett, elevator erector helper; who stated she can be discharged with outpatient follow up. Discussed with pt importance of follow up with her PMD Dr. Noble and with elevator erector helper Dr. Pritchett within 1 week. Pt verbalized understanding. Discharge Exam - Head Exam Head Exam: ATRAUMATIC, NORMAL INSPECTION, NORMOCEPHALIC - Eye Exam Eye Exam: Normal appearance - ENT Exam ENT Exam: Mucous Membranes Moist - Respiratory Exam Respiratory Exam: Clear to PA & Lateral, NORMAL BREATHING PATTERN - Cardiovascular Exam Cardiovascular Exam: REGULAR RHYTHM - Extremities Exam Extremities exam: normal inspection - Neurological Exam Neurological exam: Alert, Oriented x3 - Psychiatric Exam Psychiatric exam: Normal Mood - Skin Skin Exam: Normal Color, Warm Discharge Plan - Follow Up Plan Condition: STABLE Disposition: HOME/ ROUTINE Instructions: High Blood Pressure (DC) Additional Instructions: Please follow up with your doctor, Dr. Noble in 1 week. Call tomorrow for appointment in 1 week. Por favor, llama para sven con [facility] doctor primario Dr. Noble. Llame la oficina manana, para sven en 1 semana. Please follow up with elevator erector helper Dr. Pritchett in 1 week. Llama manana a la oficina de Dr. Pritchett (cardiologo) para hernandez sven en 1 semana. Continue taking your home medications as prescribed. Continua maame [facility]. Return to ED if you feel chest pain or shortness of breath. Regresa a la emergencia si tiene dolor en pecho o no puede respira kin. Referrals: Blake Noble MD [Family Provider] - Odin Pritchett MD [Staff Provider] -
== END 2018-09-28 16:50 | disposition home or self-care (01) ==
LOC: H.ER 00:37 → H.ERHOLD 03:38 → H.ICU/CCU 06:15
PROVIDERS: ADMIT Internal Medicine; ATTEND Internal Medicine
DX: R07.9 Chest pain, unspecified (principal); I10 Essential (primary) hypertension; E78.5 Hyperlipidemia, unspecified; E78.00 Pure hypercholesterolemia, unspecified; K59.00 Constipation, unspecified; D64.9 Anemia, unspecified; M81.0 Age-related osteoporosis without current pathological fracture; M19.90 Unspecified osteoarthritis, unspecified site; F17.210 Nicotine dependence, cigarettes, uncomplicated; Z86.73 Personal history of transient ischemic attack (TIA), and cerebral infarction without residual deficits; Z79.899 Other long term (current) drug therapy
CPT/HCPCS: 71045; 71275; 74175; 80053; 84484; 85025; 87081; 99285; G0378; J2270; Q9967